=== PATIENT | male | born 1940 | race Two or more races ===

== ENCOUNTER 2019-01-04 08:39 | Inpatient (IN) | payer MEDICARE ==
[2019-01-04] VITALS (8 sets, daily range): BP systolic 104–145; BP diastolic 52–69
[~2019-01-04] VITALS: Ht 154.9 cm; Wt 68.5 kg
[2019-01-04] MEDS ORDERED: SODIUM CHLORIDE 0.9% 1000ML 1,000 ML IV STA (08:59)
[2019-01-04 09:27] LABS: BASOPHILS # (AUTO) 0.1 (0.0-0.1); BASOPHILS % 0.5 % (0.0-1.0); EOSINOPHILS # (AUTO) 0.2 (0.0-0.4); EOSINOPHILS % 1.8 % (0.0-6.0); HEMATOCRIT 51.4 % (38.2-49.6); HEMOGLOBIN 18.4 g/dL (14.0-18.0); LYMPHOCYTES # (AUTO) 2.5 (1.0-3.2); LYMPHOCYTES % 25.9 % (18.0-39.1); MEAN CORPUSCULAR HEMOGLOBIN 31.9 pg (28-32); MEAN CORPUSCULAR HGB CONC 35.8 g/dL (31-35); MEAN CORPUSCULAR VOLUME 89.2 fL (81-99); MONOCYTES # (AUTO) 0.7 (0.2-0.8); MONOCYTES % 7.2 % (4.4-11.3); NEUTROPHILS # (AUTO) 6.1 (2.1-6.9); NEUTROPHILS % 64.3 % (38.7-80.0); PLATELET COUNT 240 x10e3/uL (140-360); RED BLOOD COUNT 5.76 x10e6/uL (4.3-5.7); RED CELL DISTRIBUTION WIDTH 12.8 % (11.7-14.4)
[2019-01-04 09:46] LABS: ALANINE AMINOTRANSFERASE 32 IU/L (0-55); ALBUMIN 4.4 g/dL (3.5-5.0); ALBUMIN/GLOBULIN RATIO 1.2 (0.8-2.0); ALKALINE PHOSPHATASE 57 IU/L (40-150); ANION GAP 16.3 mmol/L (8-16); BLOOD UREA NITROGEN 13 mg/dL (7-26); BUN/CREATININE RATIO 12 (6-25); CALCIUM 10.1 mg/dL (8.4-10.2); CARBON DIOXIDE 20 mmol/L (22-29); CHLORIDE 101 mmol/L (98-107); CREATINE KINASE 83 IU/L (30-200); CREATININE, SERUM 1.13 mg/dL (0.72-1.25); EST GLOMERULAR FILTRATION RATE > 60 ML/MIN (60-); GLUCOSE 101 mg/dL (74-118); LIPASE 60 U/L (8-78); POTASSIUM 4.3 mmol/L (3.5-5.1); SODIUM 133 mmol/L (136-145)
[2019-01-04 09:50] LABS: CLARITY,URINE CLEAR (CLEAR); COLOR,URINE YELLOW (YELLOW)
--- NOTE | 2019-01-04 09:52 | Diagnostic Imaging Report ---
EXAM: CHEST SINGLE (PORTABLE), AP Portable DATE: 01/04/2019 Time stamp on exam: 9:30 AM INDICATION: Chest pain with shortness of breath COMPARISON: None FINDINGS: LINES/TUBES: None LUNGS: Mild pulmonary vascular congestion/edema. PLEURA: Small bilateral pleural effusions. HEART AND MEDIASTINUM: Cardiomegaly. BONES AND SOFT TISSUES: No acute findings. IMPRESSION: Cardiomegaly with mild pulmonary vascular congestion/edema. Signed by: Dr. Sukhi Ramirez DO on 01/04/2019 9:48 AM
[2019-01-04 09:59] LABS: BILIRUBIN,URINE NEGATIVE (NEGATIVE); KETONES,URINE NEGATIVE (NEGATIVE); LEUKOCYTE ESTERASE ,URINE NEGATIVE (NEGATIVE); NITRITE,URINE NEGATIVE (NEGATIVE); PROTEIN,URINE DIPSTICK NEGATIVE (NEGATIVE); URINE UROBILINOGEN 0.2 mg/dL (0.2 - 1)
[2019-01-04 10:01] LABS: EPITHELIAL CELLS,URINE RARE /LPF
[2019-01-04 10:14] LABS: ABG HCO3 15 mmol/L (23-28); ABG PCO2 23 mmHg (41-51); ABG PH 7.43 (7.31-7.41); ABG PO2 58 mmHg (80-105)
[2019-01-04] MEDS ORDERED: GABAPENTIN300 MG PO (10:40)
[2019-01-04] MEDS ORDERED: FOLIC ACID1 MG PO (10:40)
[2019-01-04] MEDS ORDERED: LEVOTHYROXINE50 MCG PO (10:40)
[2019-01-04] MEDS ORDERED: CLOPIDOGREL75 MG PO (10:40)
[2019-01-04] MEDS ORDERED: B-121000 MCG PO (10:47)
[2019-01-04] MEDS ORDERED: CRESTOR10 MG PO (10:47)
[2019-01-04] MEDS ORDERED: ZEBETA10 MG PO (10:47)
[2019-01-04] MEDS ORDERED: CENTRUM SILVER1 EAC2 (10:47)
[2019-01-04] MEDS ORDERED: ALBUTEROL0.63 MG/3 (10:47)
[2019-01-04] MEDS ORDERED: [UNRECOGNIZED DRUG - OTHER] (10:47)
[2019-01-04] MEDS ORDERED: ASPIR 8181 MG PO (10:47)
[2019-01-04] MEDS ORDERED: FUROSEMIDE INJ 10 MG/ML 2 ML VIAL IV ONE (11:39)
--- OUTSIDE RECORDS SUMMARY | 2019-01-04 11:51 | XMS REPORT ---
Author Author [facility] Address Unknown Phone Unavailable Care Team Providers Care Household Cook Name Role Phone Salena DING Unavailable Unavailable Problems This patient has no known problems. Allergies, Adverse Reactions, Alerts This patient has no known allergies or adverse reactions. Medications This patient has no known medications. Results Test Description Test Time Test Comments Text Results Atomic Results Result Comments CHEST SINGLE (PORTABLE) 2019-01-04 09:46:00 [facility] [address] [place] [address] Patient Name: JAYANT GUTIERREZ MR #: [id number] : 1940 Age/Sex: 78/M Req #: [id number] Adm Physician: Ordered by: LEON DING MD Report #: [id number] Location: ER Room/Bed: Procedure: [id number] DX/CHEST SINGLE (PORTABLE) Exam Date: 01/04/19 Exam Time: 929 REPORT STATUS: Signed EXAM: CHEST SINGLE (PORTABLE), AP Portable DATE: 01/04/2019 Time stamp on exam: 9:30 AM INDICATION: Chest pain with shortness of breath COMPARISON: None FINDINGS: LINES/TUBES: None LUNGS: Mild pulmonary vascular congestion/edema. PLEURA: Small bilateral pleural effusions. HEART AND MEDIASTINUM: Cardiomegaly. BONES AND SOFT TISSUES: No acute findings. IMPRESSION: Cardiomegaly with mild pulmonary vascular congestion/edema. Signed by: Dr. Nicholas Landa DO on 01/04/2019 9:48 AM Dictated By: NICHOLAS LANDA DO 7 Transcribed By: LIO on 01/04/19947 COPY TO: LEON DING MD
[2019-01-04] MEDS ORDERED: FUROSEMIDE INJ 10 MG/ML 4 ML VIAL IV ONE (12:00)
--- NOTE | 2019-01-04 12:22 | NUR ---
Pt arrived from ER via wheelchair with assistance x1. No c/o pain. Resp WNL. A&O x3. IV patent. Able to ambulate by self without assistance. Call light within reach, bed in lowest position.
--- NOTE | 2019-01-04 13:56 | Diagnostic Imaging Report ---
EXAMINATION: CT of the abdomen and pelvis with contrast. TECHNIQUE: Helical CT images of the abdomen and pelvis were performed from the lung bases to the lesser trochanters after the intravenous administration of 100 cc of Isovue 300 and the oral administration of none. Coronal and sagittal reformatted images were obtained.Dose modulation, iterative reconstruction, and/or weight based adjustment of the mA/kV was utilized to reduce the radiation dose to as low as reasonably achievable. COMPARISON: None. CLINICAL HISTORY:Elevated bilirubin, chest pain DISCUSSION: ABDOMEN/PELVIS: LOWER THORAX:Unremarkable. HEPATOBILIARY: 1.8 cm cyst in the left lobe of the liver. The common bile duct is prominent size measuring 8 mm. Possible layering gallstones versus sludge. SPLEEN: No splenomegaly. PANCREAS: No focal masses or ductal dilatation. ADRENALS: No adrenal nodules. KIDNEYS/URETERS: No hydronephrosis, stones, or solid mass lesions. PELVIC ORGANS/BLADDER: The bladder is normal. PERITONEUM/RETROPERITONEUM: No free air or fluid. LYMPH NODES: No intra-abdominal, retroperitoneal, pelvic or inguinal lymphadenopathy. VESSELS: The celiac trunk,superior and inferior mesenteric and bilateral renal arteries are patent The portal, superior mesenteric and splenic veins are patent. GI TRACT: No obstruction. Appendix normal. BONES AND SOFT TISSUE: No bony destructive lesions. No soft tissue abnormalities. IMPRESSION: Possible small gallstones/sludge. The common bile duct at the upper limits of normal for age. Signed by: Dr. Gerard Santillan M.D. on 01/04/2019 1:52 PM
[2019-01-04] MEDS ORDERED: SODIUM CHLORIDE 0.9% 50ML 50 ML ONE (14:34)
[2019-01-04] MEDS ORDERED: IOPAMIDOL 370 MG/ML 200 ML INFUS..BTL INJ ONE (14:34)
--- NOTE | 2019-01-04 14:36 | NUR ---
notified of lactic acid value.
[2019-01-04] MEDS ORDERED: CEFTRIAXONE SOD 1 GM/NS 50 ML 50 ML IV ONE (16:00)
[2019-01-04 17:49] LABS: CREATINE KINASE MB 1.9 ng/mL (0-5.0)
[2019-01-04] MEDS ORDERED: METHYLPREDNISOLONE SOD SUCC 40 MG/ML VIAL 1ML IV ONE (18:45)
--- NOTE | 2019-01-04 19:10 | NUR ---
WALKING ROUNDS PERFORMED, RECEIVED PT LAYING SEMI FOWLERS IN BED, AAOX3, RR EVEN AND NON-LABORED, O2 BY NC AT 3L. NO S/SX OF DISTRESS NOTED. LEFT PT LAYING SEMI FOWLERS IN BED, BED IN LOW LOCKED POSITION, SIDE RAILS UPX2, CALL LIGHT AND PHONE WITHIN REACH. FAMILY AT BEDSIDE. NOTIFIED ICT DEVELOPMENT MANAGER OF TRANSFER ORDERS TO ICU. PENDING BED.
[2019-01-04 19:12] LABS: AMYLASE 89 U/L (25-125); LIPASE 76 U/L (8-78)
--- NOTE | 2019-01-04 19:13 | NUR ---
REPORT CALLED TO Judy CALDERON RN FOR PATIENT TRANSFERRING TO ROOM 195 ICU.
[2019-01-04] MEDS: CEFEPIME 1GM/NS 0.9% 50 ML 50 ML IV SCH (19:16)
--- NOTE | 2019-01-04 19:34 | NUR ---
PT TRANSFERED BY HOSPITAL BED WITH CHARGE NURSE TO ROOM 195. PT STABLE, NO S/SX OF DISTRESS NOTED.
[2019-01-04] MEDS: ALBUTEROL SULF 0.083% NEB SOLN 3 ML NEB NEB SCH (20:20)
[2019-01-04 20:30] LABS: BASOPHILS % 0.4 % (0.0-1.0); EOSINOPHILS # (AUTO) 0.2 (0.0-0.4); EOSINOPHILS % 1.8 % (0.0-6.0); HEMATOCRIT 50.7 % (38.2-49.6); HEMOGLOBIN 18.2 g/dL (14.0-18.0); LYMPHOCYTES # (AUTO) 2.7 (1.0-3.2); LYMPHOCYTES % 30.4 % (18.0-39.1); MEAN CORPUSCULAR HEMOGLOBIN 32.3 pg (28-32); MEAN CORPUSCULAR HGB CONC 35.9 g/dL (31-35); MEAN CORPUSCULAR VOLUME 89.9 fL (81-99); MONOCYTES # (AUTO) 0.7 (0.2-0.8); NEUTROPHILS # (AUTO) 5.3 (2.1-6.9); NEUTROPHILS % 59.2 % (38.7-80.0); PLATELET COUNT 224 x10e3/uL (140-360); RED BLOOD COUNT 5.64 x10e6/uL (4.3-5.7)
[2019-01-04 20:42] LABS: INR 0.95; PROTHROMBIN TIME 13.2 seconds (11.9-14.5)
[2019-01-04 20:56] LABS: ANION GAP 15.1 mmol/L (8-16); CALCIUM 9.9 mg/dL (8.4-10.2); CREATININE, SERUM 1.2 mg/dL (0.72-1.25); MAGNESIUM 2.1 MG/DL (1.3-2.1); POTASSIUM 4.1 mmol/L (3.5-5.1)
[2019-01-04] MEDS ORDERED: SIMVASTATIN 40 MG TAB PO SCH (21:00)
[2019-01-04] MEDS ORDERED: GABAPENTIN 300 MG CAP PO SCH (21:00)
[2019-01-04] MEDS: FUROSEMIDE INJ 10 MG/ML 4 ML VIAL IV SCH (21:08)
[2019-01-04] MEDS: SIMVASTATIN 20 MG TAB PO SCH (21:09)
[2019-01-04] MEDS: ENOXAPARIN SOD INJ 60 MG/0.6 ML SYR SC SCH (21:11)
--- NOTE | 2019-01-04 21:54 | History and Physical ---
HISTORY OF PRESENT ILLNESS: This is a 78-year-old male, patient of mine, presented to the emergency room with complaint of severe shortness of breath for 1 day duration. The patient was in his usual state of health and suddenly started having severe shortness of breath for the last 24 hours and prior to that, the patient was also having chills and weakness. The patient was having severe shortness of breath and the patient barely walked to the bathroom and was feeling short of breath. The patient was also complaining of chest tightness, although the patient denies any chest pain. The patient had nausea while he was doing a CAT scan. PAST MEDICAL HISTORY: The patient with medical history of coronary artery disease with previous stent placement, COPD, alcoholism, and alcoholic neuropathy. MEDICATIONS: The patient was on Plavix, aspirin, and carvedilol. ALLERGIES: NO KNOWN DRUG ALLERGIES. SOCIAL HISTORY: The patient is an ex-smoker and does not drink anymore. He denies using alcohol, but he was drinking before. Denies any drug use. REVIEW OF SYSTEMS: Detailed review of systems examination was done. All the systems as per history of present illness for severe shortness of breath, chest tightness, and leg tingling and numbness. PHYSICAL EXAMINATION: GENERAL: He is an elderly male patient. He is tachypneic and short of breath. VITAL SIGNS: Temperature 96, pulse rate 90, respiratory rate 24, blood pressure 110/80. HEENT: Normocephalic. JVD present. LUNGS: Bilateral equal air entry. Rhonchi and basilar rales present. HEART: S1 and S2 regular. ABDOMEN: Soft. Bowel sounds are present. NEUROLOGIC: No focal neurological deficits. ADMITTING IMPRESSION/DIAGNOSES: Acute dyspnea, etiology coalm-te-[id number] decompensated diastolic congestive heart failure, present on admission. Chronic obstructive pulmonary disease with exacerbation and severe hypoxemia, suspecting pulmonary embolism. Lactic acidosis, suspect sepsis versus hypoxemia secondary to lactic acidosis from hypoxemia. Carotid disease and gastritis. PLAN: The patient will be admitted with above diagnosis. We will obtain CT scan of the chest, PE protocol, and obtain Cardiology and Pulmonary consultation. The patient had echocardiogram done, which showed diastolic dysfunction. We will give the patient nebulizer treatment. Modesto Crawford MD [facility]/MODL /[id number]
[2019-01-05] VITALS (26 sets, daily range): BP systolic 87–125; BP diastolic 48–94
--- NOTE | 2019-01-05 00:08 | NUR ---
Trending blood pressures. B/P 99/55, MAP 70, HR 74. Called to Dr Huerta the covering physician for Dr Narvaez. Have been instructed by Dr Narvaez to call his covering physician regarding trending blood pressures in order to obtain a PICC line early as pt is anticipated to decompensate. Dr Huerta stated "I am not giving you an order for a PICC", "call me back with a MAP less than 65", "Im not worried about the systolic", attempts to explain the rationale for early warning is the PICC team has a 4 hour window to respond was met with a "I know about the patient" response.
--- NOTE | 2019-01-05 00:19 | Consultation ---
DATE OF CONSULTATION: 01/04/2019 Cardiology Consultation REASON FOR CONSULTATION: Shortness of breath. HISTORY OF PRESENT ILLNESS: This is a 78-year-old male with history of coronary artery disease, status post myocardial infarction and PCI in 2012, asthma, and history of tobacco and alcohol use, who presents with complaints of shortness of breath. The patient states that he has been short of breath for the last week with worsening in the last 2 to 3 days, most significantly the day prior to admission. The morning of admission, he woke up at 06:30 with shortness of breath and chest heaviness, which he described as 5/10 in severity. There was no nausea, diaphoresis, or radiation. The patient endorses dyspnea on exertion walking to the bathroom as well as symptoms of orthopnea and PND for the last 2 days. Of note, the patient reports having chills the day prior to admission and nausea during his CAT scan. REVIEW OF SYSTEMS: Negative except as per HPI. PAST MEDICAL HISTORY: 1. Coronary artery disease, status post myocardial infarction and stent in 2012. 2. Asthma/COPD. 3. Alcohol use. PAST SURGICAL HISTORY: 1. Hernia surgery. 2. Cataract surgery. SOCIAL HISTORY: Prior tobacco use. He has previously smoked 1 pack a day for 50 years. Occasional alcohol. No illicit drugs. FAMILY HISTORY: Denies family history of heart disease. ALLERGIES: PLEASE SEE EMR. MEDICATIONS: Please see medication list. PHYSICAL EXAMINATION: VITAL SIGNS: Temperature 97.3 degrees, pulse 63, respiratory rate 18, blood pressure 111/60, oxygen 95% on 3 L nasal cannula. GENERAL: Well-developed, well-nourished man, in no acute distress. HEENT: Normocephalic, atraumatic. Pupils equal. No scleral icterus. NECK: Supple. No thyroid or cervical lymphadenopathy. No carotid bruits. LUNGS: Clear to auscultation bilaterally. No wheezes or crackles. CARDIOVASCULAR: Normal rate, regular rhythm. No murmur. Normal S1 and S2. ABDOMEN: Soft, nontender. EXTREMITIES: No edema. NEURO: Nonfocal exam. LABORATORY DATA: WBC 8.95, hemoglobin 18.2, hematocrit 50.7, platelets 224. Sodium 132, potassium 4.1, chloride 100, CO2 of 21, BUN 15, creatinine 1.2. BNP is 252. Lactic acid 9. IMAGING STUDIES: 1. Chest x-ray, cardiomegaly with mild pulmonary vascular congestion/edema. 2. CT abdomen and pelvis, positive small gallstone/sludge. Common bile duct at the upper limits of normal for age. 3. EKG, sinus rhythm with right bundle-branch block, inferior and anterior infarcts, old. IMPRESSION: 1. Acute hypoxic respiratory failure. 2. Jsijz-np-dehkuiz diastolic heart failure. 3. Chronic obstructive pulmonary disease exacerbation. 4. Lactic acidosis. 5. Coronary artery disease, status post prior myocardial infarction. RECOMMENDATION: Trend cardiac markers to rule out myocardial infarction. Echocardiogram was performed. LVEF is preserved; however, the patient does have regional wall motion abnormalities noted on echo, suspect from prior myocardial infarction. He will need ischemic evaluation once dyspnea has improved. Continue gentle diuretics. Agree with therapeutic anticoagulation while CT chest to rule out PE is pending. Thank you for this consult. We will continue to follow. Sintia Amaya MD ABS/MODL /[id number] MTDD
--- NOTE | 2019-01-05 02:19 | Consultation ---
DATE OF CONSULTATION: HISTORY OF PRESENT ILLNESS: This is a 78-year-old gentleman, who was seen and examined at the request of Dr. Modesto Crawford. The patient was seen and he has been moved to ICU. The patient is a 78-year-old gentleman with known history of coronary artery disease. He is originally from [place] and he has history of smoking in the past as well. The patient has been having increasing shortness of breath over the last few days off and on, and this morning, he told his and his daughter to bring him to the hospital. The patient has had some chest tightness and pain, had discomfort, and he was found to be in congestive heart failure and he has been admitted to the hospital. I was asked to see him since the patient's ABG showed that he seems to have some acidosis and some hypoxemia. The patient had some metabolic acidosis as well with a serum bicarbonate of 15, which prompted consultation with me. The patient says that he has not felt well in the last few days. He is originally from [place], but has been in [facility] for number of years. He is not diabetic. He has had a previous history of previous myocardial infarction requiring a stent placement. Otherwise, he was a smoker for number of years in the past, but has not smoked lately. He does not know if he has underlying COPD at this time or not. The patient denies history of diabetes. MEDICATIONS: He has been started on cefepime, furosemide, simvastatin, enoxaparin, levothyroxine, gabapentin, Plavix, folic acid, bisoprolol, aspirin, and albuterol. He received a dose of Solu-Medrol earlier as well. ALLERGIES: THE PATIENT HAS NO KNOWN DRUG ALLERGIES. REVIEW OF SYSTEMS: NEUROLOGIC: He denies passing out or seizures. CARDIAC: He has had chest pain and pressure on the chest. PULMONARY: He has had shortness of breath. No hemoptysis. No significant production of sputum. ABDOMEN: He denies abdominal pain. No nausea, vomiting, or bleeding per rectum. : No dysuria or hematuria. SKIN: No rash. SOCIAL HISTORY: The patient is a nonsmoker. He has a . Originally, he is retired. He use to work in [employer]els. He says he is pretty much retired now. FAMILY HISTORY: Noncontributory. PHYSICAL EXAMINATION: VITAL SIGNS: He is afebrile, pulse 63, respiratory rate 18, blood pressure 111/60, and O2 saturation 95% on 3L. HEENT: Atraumatic, normocephalic. NECK: Supple. CHEST: Diminished breath sounds. Minimal wheezing. The patient has few crackles at lung base. HEART: Heart sounds are normal. ABDOMEN: Soft. EXTREMITIES: Showed no cyanosis, clubbing, or edema. NEUROLOGIC: He was alert, awake, but appeared somewhat anxious due to the breathing issues. LABORATORY DATA: ABG; pH 7.43, pCO2 23, pO2 58 with bicarbonate of 15. The patient's hematology, white count 9.54, hemoglobin 18.4, and platelet count is 240. Chemistries showed electrolytes are within normal limits with BUN of 13 and creatinine 0.13. Lactic acid was read as 32.3 and I am not sure that the etiology of such high lactic acid. I have asked for a repeat lactic acid, we have done stat. The patient's BNP was 252. Bilirubin 2.4. Albumin 4.4. Bicarbonate from this morning 20, of course I have not seen a repeat labs on him. So far, cardiac enzymes, his total CK was 223, MB was 1.9, and troponin was 0.008. site damage prevention technician CK-MB was 1.6 and troponin was 0.013. IMAGING DATA: The patient's abdominal and pelvic CT was unremarkable. There was no signs of any infarction or abdominal problem. The patient has a possible gallstones or sludge and common bile duct was upper limit of normal. Chest x-ray showed suggestion of cardiomegaly with small pleural effusions and pulmonary vascular congestion. At this time, my suspicion is that the patient has underlying CHF with some COPD and I cannot rule out possibility of infection or bronchitis and some COPD exacerbation. The patient has had an echocardiogram, which as a preliminary showed no evidence of pericardial effusion. The patient had mild AI or TR. There is EF of about 50% to 55%. The patient's echo has not been read by Cardiology so far. The EKG showed sinus rhythm with superior axis deviation, inferoposterior myocardial infarction. The patient has nonspecific ST-T wave changes. IMPRESSION AND PLAN: At this time, the patient has been admitted to ICU for new onset pulmonary edema, underlying chronic obstructive pulmonary disease, rule out sepsis, severe metabolic lactic acidosis. The patient is not on any metformin. There is no history of diabetes mellitus and the etiology of lactic acidosis is unclear. There is no signs of infarction of the bowel and I guess if he was hypoxic for a while, it could have triggered the lactic acidosis, but I am hoping that repeat labs showed the lactic acidosis is improving and that his overall condition seems to be better. The patient remains at risk for respiratory failure, hypoxia, shock, and . Overall condition is guarded. I have discussed the plan of care with family members and we will follow him closely in the ICU. MD KENNETH Brian/MODL /[id number]
[2019-01-05] MEDS: ALBUTEROL SULF 0.083% NEB SOLN 3 ML NEB NEB SCH ×7 (03:00→23:00)
[2019-01-05 04:59] LABS: HEMATOCRIT 50.1 % (38.2-49.6); LYMPHOCYTES # (AUTO) 0.8 (1.0-3.2); LYMPHOCYTES % 11.2 % (18.0-39.1); MEAN CORPUSCULAR HEMOGLOBIN 32.3 pg (28-32); MEAN CORPUSCULAR HGB CONC 35.9 g/dL (31-35); MEAN CORPUSCULAR VOLUME 89.9 fL (81-99); MONOCYTES # (AUTO) 0.1 (0.2-0.8); NEUTROPHILS # (AUTO) 6.4 (2.1-6.9); NEUTROPHILS % 87.5 % (38.7-80.0); PLATELET COUNT 234 x10e3/uL (140-360); RED BLOOD COUNT 5.57 x10e6/uL (4.3-5.7); RED CELL DISTRIBUTION WIDTH 12.9 % (11.7-14.4)
[2019-01-05 05:28] LABS: ALBUMIN 4.3 g/dL (3.5-5.0); ALBUMIN/GLOBULIN RATIO 1.3 (0.8-2.0); ANION GAP 17.3 mmol/L (8-16); CALCIUM 9.7 mg/dL (8.4-10.2); CREATININE, SERUM 1.56 mg/dL (0.72-1.25); POTASSIUM 4.3 mmol/L (3.5-5.1)
[2019-01-05 05:29] LABS: CREATINE KINASE MB 1.8 ng/mL (0-5.0)
[2019-01-05 05:58] LABS: CHOL/HDL RATIO 1.5 (3.9-4.7)
[2019-01-05] MEDS: CEFEPIME 1GM/NS 0.9% 50 ML 50 ML IV SCH ×2 (06:33→18:11)
[2019-01-05] MEDS: LEVOTHYROXINE SODIUM 50 MCG TAB PO SCH (06:33)
[2019-01-05] MEDS: FUROSEMIDE INJ 10 MG/ML 4 ML VIAL IV SCH (08:49)
[2019-01-05] MEDS: FOLIC ACID 1 MG TAB PO SCH (08:50)
[2019-01-05] MEDS: ENOXAPARIN SOD INJ 60 MG/0.6 ML SYR SC SCH ×2 (08:50→21:05)
[2019-01-05] MEDS: CLOPIDOGREL BISULFATE 75 MG TAB PO SCH (08:50)
[2019-01-05] MEDS: ASPIRIN 81 MG CHEW TAB PO SCH (08:50)
[2019-01-05] MEDS: BISOPROLOL FUMARATE 10 MG TAB PO SCH (08:52)
--- NOTE | 2019-01-05 08:54 | Diagnostic Imaging Report ---
EXAM: US ABDOMEN COMPLETE INDICATION: Gallstone. COMPARISON: CT Abdomen/Pelvis 01/04/2019. TECHNIQUE: Transverse and longitudinal martinez scale and color doppler sonographic images of the abdomen were obtained. FINDINGS: LIVER 10.3 cm in the right midclavicular line. Increased echogenicity of the liver with normal contour. Simple appearing anechoic cyst within the left hepatic lobe, measuring up to 1.9 cm. SPLEEN 6.8 cm in maximum diameter. Normal echogenicity, no masses. GALLBLADDER Mild gallbladder sludge. No gallbladder wall thickening, distension, stone, or pericholecystic fluid. Negative reported sonographic Palmer's sign. BILE DUCTS No intra nor extra-hepatic biliary dilation. Common bile duct measures 0.5 cm PANCREAS: Visualized portions are normal. RIGHT KIDNEY: 9.4 cm Echogenicity: Normal Collecting System: No hydronephrosis Stones: None Cyst/Mass: None LEFT KIDNEY: 9.3 cm Echogenicity: Normal Collecting System: No hydronephrosis Stones: None Cyst/Mass: None VESSELS: Aorta: Visualized portions are within normal size limits Inferior Vena Cava: Visualized portions are normal Main Portal Vein: 0.8 cm, normal size with hepatopetal flow. FREE FLUID: None IMPRESSION: Mild gallbladder sludge without sonographic evidence of cholecystitis. Hepatic steatosis. Signed by: Dr. Amberly Bess MD on 01/05/2019 8:51 AM
[2019-01-05] MEDS ORDERED: ALBUMIN 25% 25GM 100ML 0.25 GM/ML BTL IV SCH (09:45)
[2019-01-05] MEDS ORDERED: ALBUMIN 25% 25GM 100ML 200 ML IV ONE (10:00)
[2019-01-05] MEDS ORDERED: THIAMINE HCL INJ 100 MG/ML 2ML VIAL IV ONE (10:15)
--- NOTE | 2019-01-05 10:16 | Consultation ---
DATE OF CONSULTATION: HISTORY OF PRESENT ILLNESS: A 78-year-old gentleman with underlying history of coronary artery disease status post PCI stenting, history of [place] six years ago, history of COPD, asthma, history of tobacco addiction, and history of alcoholism. He continues to drink beer off and on, last drank home a few days ago. He presented with worsening shortness of breath, chest pressure, found to have significant COPD exacerbation. Found to have significantly elevated lactic acid level and acute kidney injury. The patient denies any history suggestive of any kidney dysfunction. It does sound like he has prostate enlargement. He feels better today. His workup included CT scan of the abdomen and pelvis with contrast as well as an abdominal ultrasound. I am unable to pull up the chest x-ray film, but the report shows cardiomegaly and pulmonary edema. Laboratory test shows a hemoglobin of 18 with a hematocrit of 50. His chemistry shows serum sodium 133, potassium 4.3, bicarbonate 20 with anion gap 17, creatinine 1.56. He had a CK of 400. Last BNP level was 253. His total bilirubin was found to be 2.2. His troponin I 0.005. Last lactic acid 10.9. Urinalysis completely benign. ALLERGIES: NO APPARENT DRUG ALLERGIES. CURRENT MEDICATIONS: The patient is on cefepime 1 g IV q.12 h., albuterol Atrovent nebulizer, aspirin 81 mg daily, Plavix 75 mg daily, Lovenox 60 subcu q.12 h., folic acid 1 mg daily, currently on Lasix 40 mg IV q.12 h., gabapentin 300 mg p.o. at bedtime, which I am going to stop. Levothyroxine 50 mcg daily. Received methylprednisolone 1 time does and he is on Zocor 20 mg p.o. at bedtime. SOCIAL HISTORY: As above. FAMILY HISTORY: Significant for hypertension. PHYSICAL EXAMINATION: VITAL SIGNS: The patient's blood pressure is 125/62, pulse rate 75, afebrile, oxygen saturation 96% on 3 L nasal cannula. HEAD AND NECK: Arcus senilis noted. Oral mucosa dry. Neck veins questionable JVD. LUNGS: Bibasilar rales. Occasional end-expiratory rhonchi. HEART: No significant rubs or gallop. ABDOMEN: Otherwise soft, nontender, albeit distended. Flanks full. EXTREMITIES: Lower extremity examination shows no edema. IMPRESSION AND PLAN: 1. Lactic acidosis most likely type A due to combination of tissue hypoperfusion as well as decreased metabolism of lactic acid due to hepatic steatosis probably early cirrhosis plus ongoing alcohol intake. 2. Hypoxia, most likely combination of chronic obstructive pulmonary disease exacerbation, most likely angina and congestive heart failure. Has significant hemoconcentration, may require phlebotomy. His hematocrit is 50, so that places him high risk for vascular insult. Consider phlebotomy. 3. Acute kidney injury, multifactorial, slightly worse today secondary to diuretics, but at this point in time, I will encourage to continue with diuretics. Serum sodium relatively low, multifactorial, again liver recent, alcohol use, questionable nutritional intake. Plan on continuing with diuretics, bronchodilators oxygen, at some point in time we will need a stress test and possible cardiac cath. Kidneys 9.4 and 9.3 cm with normal echogenicity. Please see orders. MD BLADIMIR Pope/LANIE /[id number]
[2019-01-05] MEDS: BUMETANIDE INJ 0.25MG/ML 4ML VIAL IV SCH ×2 (12:04→17:02)
[2019-01-05] MEDS: SODIUM BICARBONATE 650 MG TAB PO SCH ×2 (12:04→21:05)
--- NOTE | 2019-01-05 14:02 | Progress Note ---
DATE: 01/05/2019 Cardiology Progress Note SUBJECTIVE: The patient denies chest pain. He reports his shortness of breath is better. OBJECTIVE: VITAL SIGNS: Temperature 98.5 degrees, pulse 88, respiratory rate 18, blood pressure 102/90, oxygen saturation 96% on 3 L nasal cannula. GENERAL: Awake, alert, in no acute distress. LUNGS: Clear to auscultation bilaterally. No wheezes or crackles. CARDIOVASCULAR: Normal rate, regular rhythm. No murmur. Normal S1, S2. ABDOMEN: Soft and nontender. EXTREMITIES: No edema. CARDIAC MEDICATIONS: 1. Enoxaparin 60 mg subcu q.12 hours. 2. Plavix 75 mg p.o. daily. 3. Aspirin 81 mg p.o. daily. 4. Levothyroxine 50 mcg p.o. daily. 5. Simvastatin 20 mg p.o. daily. 6. Metoprolol 5 mg p.o. daily. 7. Bumex 1 mg IV q.6 hours. LABORATORY DATA: WBC 7.32, hemoglobin 18, hematocrit 50.1, platelets 234. Sodium 132, potassium 4.3, chloride 100, CO2 20, BUN 20, creatinine 1.56. Troponin 0.005. LDL 19. Ultrasound of abdomen, hepatic steatosis, small gallbladder sludge without sonographic evidence of cholecystitis. Telemetry, normal sinus rhythm. IMPRESSION: 1. Acute hypoxic respiratory failure. 2. Tawfk-kr-angiebo diastolic heart failure. 3. Chronic obstructive pulmonary disease exacerbation. 4. Lactic acidosis, resolved. 5. Coronary artery, status post prior myocardial infarction. RECOMMENDATIONS: The patient ruled out for myocardial infarction with serial cardiac biomarkers. Echocardiogram with preserved LVEF. However, the patient does have regional wall motion abnormalities noted on echo, possibly from prior myocardial infarction. He will need ischemic evaluation once his dyspnea is improved. The patient had mild ZONIA this morning. Diuretics were adjusted by Nephrology. We will monitor closely. CT chest is pending to rule out PE. Continue therapeutic anticoagulation. Antibiotics per primary service. Thank you for this consult. We will continue to follow. Sintia Amaya MD ABS/MODL /[id number]
--- NOTE | 2019-01-05 15:31 | NUR ---
PATIENT AMBULATED WITH PHYSICAL THERAPY. NO SOB. SITTING UP IN CHAIR AND DENIES SOB. VSS
[2019-01-05] MEDS ORDERED: IOPAMIDOL 370 MG/ML 200 ML INFUS..BTL INJ ONE (15:56)
[2019-01-05] MEDS ORDERED: SODIUM CHLORIDE 0.9% 50ML 0 ML ONE (15:56)
[2019-01-05] MEDS ORDERED: SODIUM CHLORIDE 0.9% 100 ML 100 ML ONE (16:03)
--- NOTE | 2019-01-05 16:22 | NUR ---
PATIENT WITH ONLY 1 VOID TODAY OF 300 ML. ORDER TO BLADDER SCAN. NO URINE RETENTION PER SCAN. NOTIFIED DR ALMENDAREZ AND NEW ORDERS RECEIVED.
[2019-01-05] MEDS ORDERED: ALBUMIN 5% 0.05 GM/ML BTL IV ONE (16:30)
[2019-01-05] MEDS ORDERED: ALBUMIN 5% 250ML 500 ML IV ONE (16:30)
--- NOTE | 2019-01-05 16:43 | Progress Note ---
DATE: SUBJECTIVE: The patient was seen and examined. Chart was reviewed. The patient has been doing better. He denies chest pain, nausea, vomiting, or other complaints. His breathing has significantly improved since yesterday. The patient was also anxious yesterday and he seems to be less anxious today. The patient denies other complaints. MEDICATIONS: Include cefepime, albuterol, aspirin, bisoprolol, Plavix, folic acid, levothyroxine, enoxaparin, Bumex, and sodium bicarbonate. The patient has been otherwise in no distress. He received a dose of Solu-Medrol yesterday and today. He is usually not wheezing at all and he denies any new complaints. PHYSICAL EXAMINATION: VITAL SIGNS: The patient has been afebrile, pulse 88, respiratory rate 18, blood pressure 102/90 and O2 saturation 96%. HEENT: Atraumatic, normocephalic. NECK: Supple. CHEST: Reasonably clear. HEART: Heart sounds are normal. ABDOMEN: Soft. EXTREMITIES: No cyanosis, clubbing, or edema. NEUROLOGIC: He is alert, awake, calm, and cooperative. LABORATORY DATA: BUN of 20, creatinine 1.56, white count 7.3, hemoglobin 18, hematocrit 50, platelet count is 234. PT/INR 0.95. The patient has received thiamine and he has received IV Bumex and Lovenox. The patient denies chest pain, nausea, vomiting, or other complaints. The patient's lactic acid has improved. At this time, it is not clear as to what cause the lactic acidosis, but could certainly be hypoxemia. His initial chest x-ray was suggestive of congestive heart failure. Anemia with some underlying COPD. IMPRESSION: 1. The patient with underlying congestive heart failure secondary to diastolic dysfunction. 2. History of coronary artery disease. 3. The patient with underlying gallstones versus sludge. 4. Chest x-ray was suggestive of mild congestive heart failure. 5. The patient's overall condition continues to improve. We will continue current care. The patient has been seen by Dr. Magana for metabolic acidosis evaluation and overall prognosis remains guarded. The patient does have slight high hematocrit, the etiology of which is unclear. Chemistries does show that his CK was slightly elevated though the MB and troponins were normal. Bilirubin is just slightly high at 2.2 and vitamin B1 level is pending. Lactic acid is at 27.1 mg/dL which is improved from before. So far, the patient's overall condition continues to improve and we will follow the patient closely. MD KENNETH Brian/LANIE /[id number]
[2019-01-05] MEDS: SODIUM CHLORIDE 0.9% 1000ML 1,000 ML IV SCH (16:48)
--- NOTE | 2019-01-05 16:56 | Diagnostic Imaging Report ---
EXAM: CT Chest with contrast INDICATION: Pulmonary congestion, edema. COMPARISON: CT abdomen/pelvis 01/04/2019. TECHNIQUE: Chest was scanned utilizing a multidetector helical scanner from the lung apex through the level of the adrenal glands without administration of IV contrast. Coronal and sagittal reformations were obtained. Routine protocol was performed. IV CONTRAST: 100 mL of Isovue-370 RADIATION DOSE: Total DLP: 566.4 mGy*cm Dose modulation, iterative reconstruction, and/or weight based adjustment of the mA/kV was utilized to reduce the radiation dose to as low as reasonably achievable. COMPLICATIONS: None FINDINGS: LINES/ TUBES: None. LUNGS AND AIRWAYS: The central airways are patent. There are moderate upper lobe predominant centrilobular emphysematous changes of the lungs. Mild biapical pleural-parenchymal opacity, consistent with prior granulomatous disease. Punctate 1 mm calcified granuloma in the left upper lobe on series 3, image 34. There is a 4 mm dependent groundglass nodular opacity in the right upper lobe on series 3, image 66, likely infectious or inflammatory. No evidence of pulmonary edema or pneumonia. PLEURA: The pleural spaces are clear. HEART AND MEDIASTINUM: The thyroid gland is unremarkable. No mediastinal, hilar or axillary lymphadenopathy. Mild cardiomegaly. Moderate to extensive atherosclerotic calcifications within the thoracic aorta and coronary arteries. UPPER ABDOMEN: Left hepatic lobe cyst. Mildly prominent common bile duct, measuring up to 8 mm. Please refer to the CT abdomen/pelvis from 01/04/2019 for further details of upper abdominal findings. BONES: No acute osseous abnormality. No suspicious lytic or blastic lesions. SOFT TISSUES: Small left-sided fat-containing Bochdalek hernia. IMPRESSION: No evidence of pulmonary edema or pneumonia. Moderate upper lobe predominant emphysematous changes of the lungs. Signed by: Dr. Amberly Bess MD on 01/05/2019 4:53 PM
[2019-01-05] MEDS: SIMVASTATIN 20 MG TAB PO SCH (21:05)
[2019-01-06] VITALS (25 sets, daily range): BP systolic 74–144; BP diastolic 44–86
[2019-01-06] MEDS: BUMETANIDE INJ 0.25MG/ML 4ML VIAL IV SCH ×3 (01:00→21:27)
[2019-01-06] MEDS: ALBUTEROL SULF 0.083% NEB SOLN 3 ML NEB NEB SCH ×6 (03:00→23:50)
[2019-01-06 05:33] LABS: BASOPHILS % 0.4 % (0.0-1.0); EOSINOPHILS % 0.3 % (0.0-6.0); HEMATOCRIT 41.6 % (38.2-49.6); HEMOGLOBIN 14.2 g/dL (14.0-18.0); LYMPHOCYTES # (AUTO) 2.9 (1.0-3.2); LYMPHOCYTES % 25.6 % (18.0-39.1); MEAN CORPUSCULAR HEMOGLOBIN 31.8 pg (28-32); MEAN CORPUSCULAR HGB CONC 34.1 g/dL (31-35); MEAN CORPUSCULAR VOLUME 93.3 fL (81-99); MONOCYTES # (AUTO) 1.4 (0.2-0.8); MONOCYTES % 12.3 % (4.4-11.3); NEUTROPHILS # (AUTO) 6.8 (2.1-6.9); NEUTROPHILS % 61.2 % (38.7-80.0); PLATELET COUNT 183 x10e3/uL (140-360); RED BLOOD COUNT 4.46 x10e6/uL (4.3-5.7); RED CELL DISTRIBUTION WIDTH 13.2 % (11.7-14.4)
[2019-01-06 05:52] LABS: ALBUMIN/GLOBULIN RATIO 2.1 (0.8-2.0); CALCIUM 9.2 mg/dL (8.4-10.2); CREATININE, SERUM 1.88 mg/dL (0.72-1.25)
--- NOTE | 2019-01-06 06:01 | Diagnostic Imaging Report ---
EXAM: CHEST SINGLE (PORTABLE), AP Portable DATE: 01/06/2019 7:00 AM Time stamp on exam: 9:30 AM INDICATION: CHF. Pulmonary edema. COMPARISON: 01/04/2019. FINDINGS: LINES/TUBES: None LUNGS: Mild pulmonary vascular congestion/edema. PLEURA: Small bilateral pleural effusions. HEART AND MEDIASTINUM: Cardiomegaly. BONES AND SOFT TISSUES: No acute findings. IMPRESSION: No significant interval change in bilateral pulmonary venous congestion. Signed by: Dr. Sal Staples M.D. on 01/06/2019 5:57 AM
[2019-01-06] MEDS: LEVOTHYROXINE SODIUM 50 MCG TAB PO SCH (06:05)
[2019-01-06] MEDS: CEFEPIME 1GM/NS 0.9% 50 ML 50 ML IV SCH ×2 (06:06→18:18)
--- NOTE | 2019-01-06 08:00 | NUR ---
AMBULATED PATIENT IN HALLWAY. SOME SOB NOTED. O2 SATS AT 90% ON 4L NC WHILE WALKING
[2019-01-06] MEDS: ASPIRIN 81 MG CHEW TAB PO SCH (08:36)
[2019-01-06] MEDS: SODIUM BICARBONATE 650 MG TAB PO SCH ×3 (08:37→21:27)
[2019-01-06] MEDS: FOLIC ACID 1 MG TAB PO SCH (08:37)
[2019-01-06] MEDS: CLOPIDOGREL BISULFATE 75 MG TAB PO SCH (08:37)
[2019-01-06] MEDS: BISOPROLOL FUMARATE 10 MG TAB PO SCH (08:37)
[2019-01-06] MEDS: ENOXAPARIN SOD INJ 60 MG/0.6 ML SYR SC SCH ×2 (08:37→21:27)
[2019-01-06] MEDS: SODIUM CHLORIDE 0.9% 1000ML 1,000 ML IV SCH (10:09)
--- NOTE | 2019-01-06 13:42 | Progress Note ---
DATE: SUBJECTIVE: The patient is a 78-year-old gentleman, who was admitted with increasing shortness of breath. The patient has been feeling well. MEDICATIONS: Include sodium bicarbonate, enoxaparin, folic acid, Plavix, aspirin, albuterol, cefepime, levothyroxine, Bumex, simvastatin, and bisoprolol. PHYSICAL EXAMINATION: VITAL SIGNS: The patient has been afebrile, pulse 70, respiratory rate 17, blood pressure 112/50, pulse oximetry 96% on 3 L. HEENT: Atraumatic, normocephalic. NECK: Supple. CHEST: Diminished breath sounds, otherwise are clear. HEART: Heart sounds are normal. ABDOMEN: Soft. EXTREMITIES: Showed no cyanosis, clubbing, or edema. IMAGING: The patient had a chest x-ray, which shows no significant change with bilateral pulmonary vascular congestion. The patient's CT scan of the chest showed no evidence of pulmonary edema or pneumonia. The patient has emphysematous changes. There is a 4 mm ground glass nodular opacity in the right upper lobe, which may be infectious or inflammatory and may require a followup in the future. Clinically from the pulmonary standpoint, the patient seems to be doing okay. LABORATORY DATA: White count is 11.12, hemoglobin 14.2, hematocrit 41.6, platelet count is 183. Chemistries show creatinine of 1.88, BUN of 25, anion gap is slightly high at 18, bilirubin is 1.8, alkaline phosphatase 36. The patient's albumin is 5.0. ASSESSMENT AND PLAN: Clinically, the patient seems to be doing alright. I have no new recommendations. The patient has underlying congestive heart failure and underling diastolic dysfunction. There may be a component of chronic obstructive pulmonary disease as a problem and hypoxia. The patient remains on antibiotics at this time and his pulmonary status remains stable. The patient's creatinine has bumped up and I think at this time, we may have to watch his volume status and watch whether he needs that much diuretics. Clinically, the patient seems to be improving. The patient has been on cefepime, which is reasonable, but I think I do not see any evidence of significant pneumonia or infection and I will let the Nephrology Service decide on the fluids and diuretics. Overall, condition is guarded. The patient has been overall doing well otherwise. We will continue to follow him on as needed basis. I thank Dr. Salvador for asking me to see Sienna Carlene Crawford. MD KENNETH Brian/LANIE /[id number]
--- NOTE | 2019-01-06 15:14 | NUR ---
Nutrition Screen Note RD Recommendation for Physician: -Continue current diet as ordered -Handouts on heart healthy diet were given. Plan of Care: RD following, monitoring for tolerance and adequacy Nutrition reason for involvement: Diagnosis Primary Diagnose(s): congestive heart failure secondary to diastolic dysfunction PMH: CAD, asthma, COPD Ht: 61in Wt: 151.38lb BMI: 28.6kg/m2 IBW: 112lb RD Assessment: (01/06) Chart reviewed. Labs and meds reviewed. 78yo M, who was admitted for SOB. CXR showed mild pulmonary vascular congestion/edema, small bilateral pleural effusions and cardiomegaly. Visited pt in the room. Pt reported improvement in his appetite. No complains of nausea or vomiting. LBM 01/06. Pt denied any chewing or swallowing difficulty. Weight has been stable. Will continue to monitor and follow. Current Diet: cardiac diet/ vegetarian Malnutrition Evaluation (01/06/2019) The patient does not meet criteria for a specified degree of malnutrition at this time. Will re-evaluate at follow-up as appropriate. Diet Education Needs Assessment: Diet education indicated, pt was not interested at this time. Handouts were left on bedside. Nutrition Care Level: low Signed: Zoie Parry, MS, RD, LD
[2019-01-06] MEDS: BUDESONIDE/FORMOTEROL 160/4.5MCG INHALER INH SCH (20:00)
--- NOTE | 2019-01-06 21:24 | Progress Note ---
DATE: Cardiology Progress Note SUBJECTIVE: No major events overnight. His breathing is better. OBJECTIVE: VITAL SIGNS: Temperature afebrile, pulse 79, respiratory rate 20, blood pressure 144/86, saturating 96% on 3 L nasal cannula. GENERAL: Awake and alert. No acute distress. CARDIOVASCULAR: Regular rate and rhythm. No murmurs, rubs, or gallops. LUNGS: Clear to auscultation bilaterally. ABDOMEN: Soft, nontender, nondistended. NEURO AND PSYCH: Alert and oriented to person, place, and time. Normal affect. INPATIENT MEDICATIONS: Reviewed. LABORATORY DATA: Reviewed. TELEMETRY DATA: Reviewed. ASSESSMENT: 1. Hqlxk-fa-nzhjwfa diastolic heart failure exacerbation. 2. Acute hypoxemic respiratory failure. 3. Chronic obstructive pulmonary disease exacerbation. 4. Coronary artery disease status post prior myocardial infarction and stenting. RECOMMENDATIONS: The patient has been ruled out for acute MT with serial cardiac biomarkers. Echocardiogram shows preserved LV EF with some wall motion abnormalities. Continue diuresing as renal function tolerates. CT PE protocol has been performed that showed no evidence of pulmonary embolism. There is no significant pulmonary edema present. Since there is no evidence of PE or acute coronary syndrome, we will discontinue full-dose anticoagulation and only continue prophylactic dose Lovenox. Once the patient's shortness of breath improves and he is out of the ICU, he will need ischemic evaluation. If renal function remains poor, I recommend a stress test instead of proceeding directly to catheterization. Thank you for this consult. We will continue to follow. MD MATTHIAS Egan/MODL /[id number]
[2019-01-06] MEDS: SIMVASTATIN 20 MG TAB PO SCH (21:27)
[2019-01-07] VITALS (16 sets, daily range): BP systolic 111–127; BP diastolic 60–79
[2019-01-07] MEDS: ALBUTEROL SULF 0.083% NEB SOLN 3 ML NEB NEB SCH ×6 (03:00→23:00)
[2019-01-07] MEDS: SODIUM CHLORIDE 0.9% 1000ML 1,000 ML IV SCH (03:26)
[2019-01-07 05:16] LABS: BASOPHILS # (AUTO) 0.1 (0.0-0.1); BASOPHILS % 0.6 % (0.0-1.0); EOSINOPHILS # (AUTO) 0.4 (0.0-0.4); EOSINOPHILS % 4.6 % (0.0-6.0); HEMATOCRIT 44.7 % (38.2-49.6); HEMOGLOBIN 15.1 g/dL (14.0-18.0); LYMPHOCYTES # (AUTO) 2.8 (1.0-3.2); LYMPHOCYTES % 31.5 % (18.0-39.1); MEAN CORPUSCULAR HEMOGLOBIN 31.7 pg (28-32); MEAN CORPUSCULAR HGB CONC 33.8 g/dL (31-35); MEAN CORPUSCULAR VOLUME 93.9 fL (81-99); MONOCYTES % 10.6 % (4.4-11.3); NEUTROPHILS # (AUTO) 4.7 (2.1-6.9); NEUTROPHILS % 52.5 % (38.7-80.0); PLATELET COUNT 184 x10e3/uL (140-360); RED BLOOD COUNT 4.76 x10e6/uL (4.3-5.7)
[2019-01-07 05:26] LABS: ALBUMIN 4.7 g/dL (3.5-5.0); ALBUMIN/GLOBULIN RATIO 1.7 (0.8-2.0); ANION GAP 17.6 mmol/L (8-16); CALCIUM 9.2 mg/dL (8.4-10.2); CREATININE, SERUM 1.21 mg/dL (0.72-1.25); POTASSIUM 3.6 mmol/L (3.5-5.1)
[2019-01-07] MEDS: LEVOTHYROXINE SODIUM 50 MCG TAB PO SCH (06:29)
[2019-01-07] MEDS: CEFEPIME 1GM/NS 0.9% 50 ML 50 ML IV SCH ×2 (06:29→17:57)
--- NOTE | 2019-01-07 08:12 | NUR ---
AMBULATED PATIENT IN HALLWAY. O2 SATS 89-90% WHILE WALKING ON 3L NC.
[2019-01-07] MEDS: SODIUM BICARBONATE 650 MG TAB PO SCH ×2 (08:13→11:17)
[2019-01-07] MEDS: CLOPIDOGREL BISULFATE 75 MG TAB PO SCH (08:13)
[2019-01-07] MEDS: FOLIC ACID 1 MG TAB PO SCH (08:13)
[2019-01-07] MEDS: BUMETANIDE INJ 0.25MG/ML 4ML VIAL IV SCH ×2 (08:13→20:50)
[2019-01-07] MEDS: ASPIRIN 81 MG CHEW TAB PO SCH (08:13)
[2019-01-07] MEDS: ENOXAPARIN SOD INJ 60 MG/0.6 ML SYR SC SCH (08:13)
[2019-01-07] MEDS: BISOPROLOL FUMARATE 10 MG TAB PO SCH (08:41)
[2019-01-07] MEDS: BUDESONIDE/FORMOTEROL 160/4.5MCG INHALER INH SCH ×2 (11:00→20:00)
[2019-01-07] MEDS: DOCUSATE SODIUM 100 MG CAP PO SCH (11:13)
--- NOTE | 2019-01-07 11:44 | NUR ---
patient on portable athletic monitor. awaiting transfer to [facility]
--- NOTE | 2019-01-07 11:53 | NUR ---
report received, patient to arrive to unit alert and oriented with family member at bedside.
--- NOTE | 2019-01-07 12:00 | NUR ---
patient arrived to unit via wheelchair, alert and oriented with family at bedside. call simmons within reach and bed in lowest position.
--- NOTE | 2019-01-07 14:07 | Progress Note ---
DATE: SUBJECTIVE: The patient has been doing well. He denies chest pain, nausea, vomiting, or other complaints. Pulmonary status is improving. He remains on Bumex at 1 mg q.12 hours. Remains on enoxaparin, folic acid, Plavix, aspirin, cefepime, levothyroxine, simvastatin, budesonide, bisoprolol, and albuterol. PHYSICAL EXAMINATION: GENERAL: The patient has been alert, awake, calm, and cooperative. The patient had good urine output and oxygenation remains okay. VITAL SIGNS: The patient's pulse is 67, respiratory rate 14, and O2 saturation 96% on 3 L. HEENT: Atraumatic, normocephalic. NECK: Supple. CHEST: Diminished breath sounds, otherwise are clear. HEART: Heart sounds are normal. ABDOMEN: Soft. EXTREMITIES: No cyanosis, clubbing, or edema. NEUROLOGIC: He is awake, alert, calm, and cooperative. LABORATORY DATA: Blood cultures have remained negative. Labs show white count of 8.9, hemoglobin 15.1, and platelet count 184. Chemistry showed BUN of 20 and creatinine of 1.21. The patient's bilirubin is 2.5, AST 39, alkaline phosphatase 39, and albumin 4.7. ASSESSMENT AND PLAN: Clinically, the patient continues to improve. From my standpoint, the patient is back to baseline. The patient does have some hypoxemia and may need home O2 when he goes home, but from my standpoint he seems to be much better and may go out of the ICU. The patient has underlying CHF probably from diastolic dysfunction along with some mild COPD. The patient's last chest x-ray showed no significant change from mild vascular congestion or edema, but CT scan of the chest showed no significant edema and showed mostly slight emphysematous changes with a slight one area of small ground glass nodule in the right upper lobe. Clinically, the patient is much better. The patient has mild cardiomegaly and mild to moderate extensive atherosclerotic calcification on the CT scan. We will continue current care. From my standpoint, IV diuretics can be switched to p.o. diuretics. We can also stop the IV fluids and switch his IV cefepime to oral antibiotic such as Ceftin or Keflex. The patient can move out of the ICU and the patient can follow up with me as an outpatient depending on how he does and if his O2 saturations remain low even with walking and at any time if it is below 88%, then I think he may benefit from oxygen at home. MD KENNETH Brian/LANIE /[id number]
[2019-01-07] MEDS ORDERED: SODIUM CHLORIDE 0.9% 250ML 250 ML ONE (17:04)
--- NOTE | 2019-01-07 18:45 | NUR ---
rounded with hourly shift nurse, patient aware of change and in no distress. call simmons within reach, bed in lowest position and son at bedside.
--- NOTE | 2019-01-07 20:18 | Progress Note ---
DATE: 01/07/2019 Cardiology Progress Note SUBJECTIVE: No major events overnight. His breathing is a lot better today. OBJECTIVE: VITAL SIGNS: Temperature afebrile, pulse 81, respiratory rate 18, blood pressure 115/61, and saturating 96% on 2 L nasal cannula. GENERAL: No acute distress. CARDIOVASCULAR: Regular rate and rhythm. No murmurs, rubs, or gallops. LUNGS: Clear to auscultation bilaterally. Decreased air movement. ABDOMEN: Soft, nontender, and nondistended. NEURO AND PSYCH: Alert and oriented to person, place, and time. Normal affect. INPATIENT MEDICATIONS: Reviewed. LABORATORY DATA: Reviewed. TELEMETRY DATA: Reviewed. ASSESSMENT AND PLAN: 1. Susxc-vb-[id number] diastolic congestive heart failure exacerbation. 2. Acute hypoxemic respiratory failure. 3. Chronic obstructive pulmonary disease exacerbation. 4. Coronary artery disease, status post prior myocardial infarction and stenting. RECOMMENDATIONS: His breathing continues to improve. CT scan done for ruling out PE, showed no PE or pulmonary edema, but showed some emphysematous changes, which are upper lobe predominant. Continue current cardiovascular medications. Given wall motion abnormalities on echo and risk factors, plan for nuclear stress test tomorrow. Thank you for this consult. We will continue to follow. MD MATTHIAS Egan/AUTUMNL /[id number]
[2019-01-07] MEDS: SIMVASTATIN 20 MG TAB PO SCH (20:29)
--- NOTE | 2019-01-07 22:02 | NUR ---
Patient signed the consent for stress test .verbalised understanding.family member at bedside. advised nothing by mouth after 12mn.Assessment done.no resp.distress.no pain voiced.iv right ac is patent.bed locked and in lowest position.phone and call light within reach.informed to call for assistance as needed.
[2019-01-08] MEDS: ALBUTEROL SULF 0.083% NEB SOLN 3 ML NEB NEB SCH ×6 (03:00→23:00)
[2019-01-08] MEDS: LEVOTHYROXINE SODIUM 50 MCG TAB PO SCH (05:46)
[2019-01-08] MEDS: CEFEPIME 1GM/NS 0.9% 50 ML 50 ML IV SCH (06:12)
--- NOTE | 2019-01-08 06:50 | NUR ---
Bed side shift report given to the oncoming RN.stable condition.
--- NOTE | 2019-01-08 07:10 | NUR ---
BEDSIDE ROUNDS COMPLETE NO DISTRESS NOTED, UPDATED ON POC VOICED UNDERSTANDING, R AC 18G NO SS OF INFILTRATION NOTED,DENIES CHEST PAIN AT THIS TIME, PT NPO FOR NUCLEAR STRESS TEST AT THIS TIME, NO OTHER CO VOICED CALL LIGHT IN REACH WILL CONTINUE TO MONITOR
[2019-01-08] MEDS: BUDESONIDE/FORMOTEROL 160/4.5MCG INHALER INH SCH ×2 (08:25→20:20)
[2019-01-08 08:51] VITALS: BP 124/70
[2019-01-08] MEDS ORDERED: ENOXAPARIN SOD INJ 60 MG/0.6 ML SYR SC SCH (09:00)
[2019-01-08 09:30] VITALS: BP 124/70
[2019-01-08] MEDS ORDERED: REGADENOSON 0.4 MG/5 ML SYR IV ONE (09:58)
[2019-01-08 10:23] LABS: BASOPHILS # (AUTO) 0.1 (0.0-0.1); BASOPHILS % 0.5 % (0.0-1.0); EOSINOPHILS % 10.3 % (0.0-6.0); LYMPHOCYTES # (AUTO) 2.2 (1.0-3.2); LYMPHOCYTES % 22.9 % (18.0-39.1); MEAN CORPUSCULAR HGB CONC 34.7 g/dL (31-35); MEAN CORPUSCULAR VOLUME 92.3 fL (81-99); MONOCYTES % 10.1 % (4.4-11.3); NEUTROPHILS # (AUTO) 5.3 (2.1-6.9); NEUTROPHILS % 55.8 % (38.7-80.0); PLATELET COUNT 194 x10e3/uL (140-360); RED BLOOD COUNT 5.31 x10e6/uL (4.3-5.7); RED CELL DISTRIBUTION WIDTH 12.7 % (11.7-14.4)
--- NOTE | 2019-01-08 10:29 | NUR ---
DOWN TO STRESS TEST LEFT IN STABLE CONDITION
[2019-01-08 10:41] LABS: ANION GAP 16.7 mmol/L (8-16); CALCIUM 10.1 mg/dL (8.4-10.2); CREATININE, SERUM 1.2 mg/dL (0.72-1.25); POTASSIUM 3.7 mmol/L (3.5-5.1)
[2019-01-08] MEDS ORDERED: LACTULOSE SYRUP 20 GM/30 ML UDC PO PRN (10:45)
[2019-01-08] MEDS ORDERED: CYANOCOBALAMIN INJ 1,000 MCG/ML VIAL IM SCH (11:00)
--- NOTE | 2019-01-08 11:03 | NUR ---
SPOKE WITH DR ALMENDAREZ RE: CBC, BMP RESULTS NO NEW ORDERS AT THIS TIME
[2019-01-08 12:00] VITALS: BP 125/63
--- NOTE | 2019-01-08 12:40 | NUR ---
BACK TO RM FROM STRESS TEST, PT IN STABLE CONDITION, CALL LIGHT IN REACH WILL CONTINUE TO MONITOR.
[2019-01-08] MEDS: ASPIRIN 81 MG CHEW TAB PO SCH (13:14)
[2019-01-08] MEDS: BISOPROLOL FUMARATE 10 MG TAB PO SCH (13:15)
[2019-01-08] MEDS: DOCUSATE SODIUM 100 MG CAP PO SCH ×2 (13:15→17:00)
[2019-01-08] MEDS: FOLIC ACID 1 MG TAB PO SCH (13:15)
[2019-01-08] MEDS: CLOPIDOGREL BISULFATE 75 MG TAB PO SCH (13:15)
[2019-01-08] MEDS: NYSTATIN SUSPENSION 5 ML UDC PO SCH ×3 (13:16→23:19)
[2019-01-08] MEDS: ENOXAPARIN SOD INJ 40 MG/0.4 ML SYR SC SCH (13:16)
[2019-01-08] MEDS: BUMETANIDE INJ 0.25MG/ML 4ML VIAL IV SCH (13:17)
--- NOTE | 2019-01-08 14:46 | Progress Note ---
DATE: 01/08/2019 Cardiology Progress Note SUBJECTIVE: Stress test today. OBJECTIVE: VITAL SIGNS: Temperature afebrile, pulse 71, respiratory rate 19, blood pressure 124/70, and saturating 100% on 3 L nasal cannula. GENERAL: Elderly man, in no acute distress. CARDIOVASCULAR: Regular rate and rhythm. No murmurs, rubs, or gallops. LUNGS: Clear to auscultation bilaterally. ABDOMEN: Soft, nontender, nondistended. NEURO AND PSYCH: Alert and oriented to person, place, and time. Normal affect. INPATIENT MEDICATIONS: Reviewed. LABORATORY DATA: Reviewed. TELEMETRY DATA: Reviewed. ASSESSMENT: 1. Acute on chronic diastolic congestive heart failure exacerbation. 2. Acute hypoxemic respiratory failure. 3. Chronic obstructive pulmonary disease exacerbation. 4. Coronary artery disease status post prior myocardial infarction and stenting. RECOMMENDATIONS: Feels much better today. Stress test today, pending results. Continue cardiovascular medications otherwise. Thank you for this consult. We will continue to follow. MD MATTHIAS Egan/AUTUMNL /[id number]
[2019-01-08 16:00] VITALS: BP 116/71
--- NOTE | 2019-01-08 19:00 | NUR ---
BEDSIDE SHIFT REPORT GIVEN ONCOMING SHIFT, PT IN STABLE CONDITION, DENIES PAIN AT THIS TIME, CALL LIGHT IN REACH
--- NOTE | 2019-01-08 19:00 | NUR ---
Received bedside shift report from day shift RN. Patient is laying on the bed, not in distress. Call light within reach, bed set low, side rails up x2, and wheels lock.
[2019-01-08 19:30] VITALS: BP 111/72
[2019-01-08 20:00] VITALS: BP 111/72
[2019-01-08] MEDS: SIMVASTATIN 20 MG TAB PO SCH (20:13)
--- NOTE | 2019-01-08 22:23 | Myoview Stress Test ---
DATE OF STUDY: 01/07/2019 16:49:00 PROCEDURE TITLE: Rest/stress single isotope SPECT imaging with pharmacologic stress and gated SPECT imaging. INDICATION: CHF. PROCEDURE IN DETAIL: Pharmacologic stress testing was performed with regadenoson per protocol. The heart rate was 67 beats per minute at rest and increased to 110 beats per minute during the regadenoson infusion. The rest blood pressure was 120/65 mmHg and decreased to 116/70 mmHg, which is a normal response. The resting electrocardiogram demonstrated normal sinus rhythm with right bundle-branch block. Old inferior and anterior infarct were noted. There were no ST-segment changes suggestive of myocardial ischemia. Myocardial perfusion imaging was performed at rest following the injection of 10.7 mCi of tetrofosmin. At peak pharmacologic effect, the patient was injected with 31 mCi of tetrofosmin. Gated post-stress tomographic imaging was performed. FINDINGS: The overall quality of study is fair. SPECT images demonstrate a large severe perfusion defect at the distal anterior, distal lateral, distal septal, and [id number]-bi-[id number] inferior romero and apex on both rest and stress. Gated SPECT imaging reveals akinesis of the distal lateral, distal anterior, distal septal, and ygm-ao-vvuutu inferior romero and apex. The left ventricular ejection fraction was calculated to be 76%. IMPRESSION: Myocardial perfusion imaging is abnormal. There is a large transmural scar in the distal lateral, distal anterior, distal septal, sxl-az-bunsmq inferior romero, and apex. Overall, left ventricular systolic function was normal with regional wall motion abnormalities as above. Sintia mAaya MD ABS/MODL /[id number]
[2019-01-09] VITALS (7 sets, daily range): BP systolic 109–127; BP diastolic 51–74
[2019-01-09] MEDS: ALBUTEROL SULF 0.083% NEB SOLN 3 ML NEB NEB SCH ×6 (03:00→23:00)
[2019-01-09] MEDS: LEVOTHYROXINE SODIUM 50 MCG TAB PO SCH (05:01)
[2019-01-09] MEDS: NYSTATIN SUSPENSION 5 ML UDC PO SCH ×4 (05:56→23:28)
[2019-01-09] MEDS: BUDESONIDE/FORMOTEROL 160/4.5MCG INHALER INH SCH ×2 (07:00→20:00)
--- NOTE | 2019-01-09 07:14 | NUR ---
PT ALERT RESP EVEN AND UNLABORED AT THIS TIME NO DISTRESS NOTED . PT HAS FAMILY MEMBER AT BEDSIDE, PT HAS NO C/O PAIN WHEN ASKED, CALL LIGHT IN REACH.
[2019-01-09] MEDS: FOLIC ACID 1 MG TAB PO SCH (08:58)
[2019-01-09] MEDS: DOCUSATE SODIUM 100 MG CAP PO SCH ×2 (08:58→16:43)
[2019-01-09] MEDS: CLOPIDOGREL BISULFATE 75 MG TAB PO SCH (08:58)
[2019-01-09] MEDS: ASPIRIN 81 MG CHEW TAB PO SCH (08:58)
[2019-01-09] MEDS: BUMETANIDE 1 MG TAB PO SCH (08:58)
[2019-01-09] MEDS: ENOXAPARIN SOD INJ 40 MG/0.4 ML SYR SC SCH (08:59)
[2019-01-09] MEDS: BISOPROLOL FUMARATE 10 MG TAB PO SCH (09:00)
--- NOTE | 2019-01-09 11:20 | NUR ---
PT AMB WITH PT FOR HOME 02 EVAL.
--- NOTE | 2019-01-09 13:26 | Progress Note ---
DATE: SUBJECTIVE: The patient is doing well. The patient has been moved out from the ICU to the medical floor. MEDICATIONS: Include: 1. Bisoprolol. 2. Enoxaparin. 3. Bumex. 4. Docusate. 5. Folic acid. 6. Plavix. 7. Aspirin. 8. Budesonide. 9. Nystatin. 10. Levothyroxine. 11. Simvastatin. 12. Lactulose. 13. Albuterol. OBJECTIVE: GENERAL: The patient has been doing well otherwise. VITAL SIGNS: The patient has been afebrile, pulse 62, respiratory rate is 18, and blood pressure 116/56. HEENT: Atraumatic and normocephalic. NECK: Supple. CHEST: Clear. HEART: Sounds are normal. ABDOMEN: Soft. EXTREMITIES: Show no cyanosis, clubbing, or edema. LABORATORY DATA: The patient's hemoglobin remains slightly high at 17, but otherwise the patient seems to be doing alright. Chemistries showed a BUN of 22 and creatinine stable at 1.2. The patient is overall stable at this point. His x-rays and radiological imaging have been stable. Last chest x-ray from 01/06/2019, was unremarkable. The patient had no significant change in mild pulmonary vascular congestion, but CT scan did not show any significant CHF. The patient is waiting to get a stress test. Clinically, he is improved. The patient may require home O2 and we will ask for a home O2 evaluation and , it will be okay to discharge him on 2-3 liters O2 via nasal cannula with followup with me as an outpatient. I have discussed with the patient need for a followup. I have given him my card for followup. IMPRESSION: 1. Chronic obstructive pulmonary disease exacerbation. 2. Mild congestive heart failure with diastolic dysfunction. 3. High lactic acid level at the time of admission. 4. Mild renal insufficiency. 5. Clinically, the patient is much improved. MD KENNETH Brian/MODL /[id number]
--- NOTE | 2019-01-09 15:47 | Progress Note ---
DATE: 01/09/2019 Cardiology Progress Note SUBJECTIVE: No major events overnight. OBJECTIVE: VITAL SIGNS: Temperature afebrile, pulse 65, respiratory rate 18, blood pressure 127/60 saturating 97% on 3 L nasal cannula. GENERAL: No acute distress. CARDIOVASCULAR: Regular rate and rhythm. No murmurs, rubs, or gallops. LUNGS: Clear to auscultation bilaterally. ABDOMEN: Soft, nontender, nondistended. NEURO AND PSYCH: Alert and oriented to person, place, and time. Normal affect. INPATIENT MEDICATIONS: Reviewed. LABORATORY DATA: Reviewed. TELEMETRY DATA: Reviewed. ASSESSMENT: 1. Acute on chronic diastolic congestive heart failure exacerbation. 2. Acute hypoxemic respiratory failure. 3. Chronic obstructive pulmonary disease exacerbation. 4. Coronary artery disease status post history of myocardial infarction and stenting. RECOMMENDATIONS: Had a nuclear stress test yesterday, which showed a small scar in the apex, otherwise no reversible defects. Continue current cardiovascular medications. Okay to be discharged on current regimen including 2 mg of Bumex oral daily, aspirin, Plavix, and simvastatin. Follow up in the office in 2 weeks post discharge. Thank you for this consult. We will continue to follow. MD MATTHIAS Egan/LANIE /[id number]
--- NOTE | 2019-01-09 15:57 | NUR ---
Spoke to Dr. Crawford this morning regarding discharge plan. States will do home oxygen eval and order oxygen if needed. Anticipate discharge tomorrow. Home O2 eval done. Pt's o2 sat dropped to 80% on exertion and improved on 3L of oxygen. JOVANNI spoke to pt at bedside. He directed CM to speak with his daughter Pauline Perez ([phone]), who's also at bedside. Daughter states to use any company that takes pt's insurance and would prefer anyone that can deliver quickly, since pt is anticipating discharge for tomorrow. Choice letter signed and placed in chart. Copy to pt's daughter. Referral was faxed to [employer] at [phone]. Message left for Angel with [email or web address] regarding home oxygen order and CM asked him to call pt's daughter since she had some questions. Gave him daughter's contact information. Addendum: 01/09/19 at 1606 by Linda Ortiz CM correct fax number [phone]
--- NOTE | 2019-01-09 16:02 | NUR ---
Discontinuing physical therapy services since patient is Mod I in functional mobility with out AD. Thank you Addendum: 01/09/19 at 1603 by Joey farr PT Amended: Links added.
--- NOTE | 2019-01-09 18:45 | NUR ---
Received bedside report from day shift RN. Patient is A/Ox4 while not in distress. Bed set low, wheels lock, call light within reach and bed alarm on.
--- NOTE | 2019-01-09 18:49 | NUR ---
report given to oncoming nurse for continued care. pt stable at this time.
[2019-01-09] MEDS: SIMVASTATIN 20 MG TAB PO SCH (21:31)
[2019-01-10] VITALS: BP 110/54
[2019-01-10] MEDS: ALBUTEROL SULF 0.083% NEB SOLN 3 ML NEB NEB SCH ×2 (03:00→07:00)
[2019-01-10 04:00] VITALS: BP 110/56
[2019-01-10] MEDS: LEVOTHYROXINE SODIUM 50 MCG TAB PO SCH (05:06)
[2019-01-10] MEDS: NYSTATIN SUSPENSION 5 ML UDC PO SCH (06:02)
[2019-01-10] MEDS: BUDESONIDE/FORMOTEROL 160/4.5MCG INHALER INH SCH (07:00)
--- NOTE | 2019-01-10 07:40 | NUR ---
RECEIVED PATIENT RESTING IN BED NO SIGNS OF DISTRESS. AT BEDSIDE. BED LOW, WHEELS LOCKED, SIDE RAILS X2. CALL LIGHT IN REACH WILL CONTINUE TO MONITOR.
[2019-01-10] MEDS: BISOPROLOL FUMARATE 10 MG TAB PO SCH (07:55)
[2019-01-10] MEDS: DOCUSATE SODIUM 100 MG CAP PO SCH (09:21)
[2019-01-10] MEDS: BUMETANIDE 1 MG TAB PO SCH (09:21)
[2019-01-10] MEDS: FOLIC ACID 1 MG TAB PO SCH (09:21)
[2019-01-10] MEDS: CLOPIDOGREL BISULFATE 75 MG TAB PO SCH (09:21)
[2019-01-10] MEDS: ASPIRIN 81 MG CHEW TAB PO SCH (09:21)
[2019-01-10] MEDS: ENOXAPARIN SOD INJ 40 MG/0.4 ML SYR SC SCH (09:21)
[2019-01-10 09:50] VITALS: BP 96/64
[2019-01-10 10:04] VITALS: BP 96/64
[2019-01-10] MEDS ORDERED: VENTOLIN HFA18 GM PO (10:22)
[2019-01-10] MEDS ORDERED: BUMETANIDE1 MG PO (10:22)
[2019-01-10] MEDS ORDERED: PREDNISONE10 MG PO (10:23)
[2019-01-10] MEDS ORDERED: SYMBICORT 16010.2 GM PO (10:24)
--- NOTE | 2019-01-10 10:34 | NUR ---
PATIENT A/O X3, EVEN RESPIRATIONS ON 3LNC. NO SIGNS OF DISTRESS. BOWEL SOUNDS ACTIVE, SKIN INTACT, NO EDEMA. PATIENT AMBULATES WITH STANDBY ASSIST. RIGHT AC 18 G[address]GE [address]. IV INTACT AND PATENT. VITAL SIGNS STABLE. FAMILY AT BEDSIDE WILL CONTINUE TO MONITOR PATIENT.
--- NOTE | 2019-01-10 10:48 | NUR ---
REMOVED PATIENTS IV. CATHETER TIP INTACT AND PRESSURE DRESSING APPLIED.
--- NOTE | 2019-01-10 10:57 | NUR ---
IMM EXPLAINED TO PT, SIGNED BY PT AND PLACED IN CHART COPY TO PT IN CARE TRANSITIONS FOLDER
--- NOTE | 2019-01-10 11:04 | NUR ---
PATIENT DISCHARGED FROM FACILITY. PATIENT GATHERED ALL PERSONAL BELONGINGS, DISCHARGE INSTRUCTIONS/PRESCRIPTIONS AND FOLLOW UP INFORMATION. LEFT UNIT IN WHEELCHAIR AND WENT HOME VIA PRIVATE AUTO. NO SIGNS OF DISTRESS WHEN LEAVING FACILITY.
--- NOTE | 2019-01-10 12:07 | Discharge Summary ---
He is a 78-year-old male patient, who presented to the emergency room with a complaint of severe shortness of breath and respiratory distress. ADMITTING IMPRESSION/DIAGNOSES: Acute respiratory distress with hypoxemia and hypoxemic respiratory failure and the etiology for that was acute on chronically decompensated diastolic congestive heart failure and chronic obstructive pulmonary disease exacerbation. The patient has polycythemia secondary to the hypoxemia and we were suspecting pulmonary embolism, which was ruled out. We were suspecting sepsis because of the lactic acidosis, but sepsis was also ruled out and lactic acidosis turns out to be from the severe hypoxemia. The patient has carotid artery disease and gastritis. HOSPITAL COURSE SUMMARY: The patient was admitted with the above diagnosis. The patient had a CT scan, PE protocol done. Venous Doppler study was done, which was negative. The patient had an echocardiogram done, which showed diastolic dysfunction and questionable wall motion abnormalities. So, the patient had a nuclear stress test done, which showed just scar tissue, no acute ischemia. The patient was given IV antibiotic and blood cultures and urine cultures were obtained, which were negative. So, antibiotic was discontinued. The patient was given diuretics, Lasix which was changed to Bumex. The patient was also given home oxygen arrangement. The patient was given Solu-Medrol. Now upon stabilization, the patient will be discharged home on home oxygen, oral prednisone, and Symbicort. The patient wants portable oxygen. The patient was given vitamins also. MD AUGUSTINE Terry/LANIE /[id number]
== END 2019-01-10 11:05 | disposition home or self-care (01) | DRG 291 ==
LOC: ER 08:39 → ERHOLD 11:19 → MED/SURG 12:23 → ICU 19:40 → MED/SURG 01-07 12:05
PROVIDERS: ADMIT Internal Medicine; ATTEND Internal Medicine
DX: I11.0 Hypertensive heart disease with heart failure (principal); J96.01 Acute respiratory failure with hypoxia; J44.1 Chronic obstructive pulmonary disease with (acute) exacerbation; N17.9 Acute kidney failure, unspecified; E87.2 Acidosis; I50.33 Acute on chronic diastolic (congestive) heart failure; D75.1 Secondary polycythemia; K29.70 Gastritis, unspecified, without bleeding; I25.2 Old myocardial infarction; J45.909 Unspecified asthma, uncomplicated; Z87.891 Personal history of nicotine dependence; G62.1 Alcoholic polyneuropathy; Z95.5 Presence of coronary angioplasty implant and graft
CPT/HCPCS: 36415; 36600; 71045; 71260; 74177; 76700; 78452; 80048; 80053; 80061; 81001; 82150; 82550; 82553; 82607; 82805; 82948; 83605; 83690; 83735; 83880; 84425; 84484; 85025; 85610; 87040; 87086; 93005; 93017; 93306; 93970; 94640; 94664; 97139; 99284; A9502; J0692; J0696; J1650; J1940; J2920; J3411; J3420; J7030; J7050; P9047; Q9967

== ENCOUNTER 2021-01-24 03:03 | Inpatient (IN) | payer MEDICARE ==
[~2021-01-24] VITALS: Ht 154.9 cm; Wt 53.5 kg
[~2021-01-24 03:03] MED LIST: ALBUTEROL0.63 MG/3 PO; ASPIR 8181 MG PO; B-121000 MCG PO; BUMETANIDE1 MG PO; CENTRUM SILVER1 EAC2; CLOPIDOGREL75 MG PO; CRESTOR10 MG PO; FOLIC ACID1 MG PO; GABAPENTIN300 MG PO; LEVOTHYROXINE50 MCG PO; PREDNISONE10 MG PO; SYMBICORT 16010.2 GM PO; VENTOLIN HFA18 GM PO; ZEBETA10 MG PO; [UNRECOGNIZED DRUG - OTHER]
[2021-01-24] MEDS ORDERED: SODIUM CHLORIDE 0.9% 1000ML 1,000 ML IV STA ×2 (03:07→03:35)
[2021-01-24] MEDS: CEFTRIAXONE 1 GM in SODIUM CHLORIDE 0.9% 50ML 50 ML IV SCH ×2 (03:35→10:03)
[2021-01-24 03:39] LABS: ALBUMIN 4.7 g/dL (3.5-5.0); ALBUMIN/GLOBULIN RATIO 1.3 (0.8-2.0); ANION GAP 22.1 mmol/L (8-16); CALCIUM 9.8 mg/dL (8.4-10.2); CREATININE, SERUM 1.52 mg/dL (0.72-1.25); POTASSIUM 5.1 mmol/L (3.5-5.1)
[2021-01-24 03:39] LABS: BASOPHILS % 0.4 % (0.0-1.0); EOSINOPHILS # (AUTO) 0.1 (0.0-0.4); EOSINOPHILS % 1.2 % (0.0-6.0); HEMATOCRIT 54.8 % (38.2-49.6); HEMOGLOBIN 18.8 g/dL (14.0-18.0); LYMPHOCYTES # (AUTO) 1.5 (1.0-3.2); LYMPHOCYTES % 13.8 % (18.0-39.1); MEAN CORPUSCULAR HEMOGLOBIN 32.1 pg (28-32); MEAN CORPUSCULAR HGB CONC 34.3 g/dL (31-35); MEAN CORPUSCULAR VOLUME 93.5 fL (81-99); MONOCYTES # (AUTO) 0.9 (0.2-0.8); MONOCYTES % 8.2 % (4.4-11.3); NEUTROPHILS # (AUTO) 8.1 (2.1-6.9); NEUTROPHILS % 76.1 % (38.7-80.0); PLATELET COUNT 203 x10e3/uL (140-360); RED BLOOD COUNT 5.86 x10e6/uL (4.3-5.7); RED CELL DISTRIBUTION WIDTH 12.5 % (11.7-14.4)
[2021-01-24 03:46] LABS: CREATINE KINASE MB 2.8 ng/mL (0-5.0)
[2021-01-24 03:47] LABS: B-TYPE NATRIURETIC PEPTIDE2 264.9 pg/mL (0-100)
[2021-01-24] MEDS: SODIUM CHLORIDE 0.9% 1000ML 1,000 ML IV SCH ×2 (06:00→16:49)
[2021-01-24 06:14] LABS: ALBUMIN 3.3 g/dL (3.5-5.0); ALBUMIN/GLOBULIN RATIO 1.3 (0.8-2.0); ANION GAP 16.5 mmol/L (8-16); CALCIUM 7.9 mg/dL (8.4-10.2); CREATININE, SERUM 1.23 mg/dL (0.72-1.25); POTASSIUM 4.5 mmol/L (3.5-5.1)
[2021-01-24 06:27] LABS: CLARITY,URINE CLEAR (CLEAR); COLOR,URINE YELLOW (YELLOW)
[2021-01-24 06:28] LABS: KETONES,URINE NEGATIVE (NEGATIVE); LEUKOCYTE ESTERASE ,URINE TRACE (NEGATIVE); NITRITE,URINE NEGATIVE (NEGATIVE); PROTEIN,URINE DIPSTICK NEGATIVE (NEGATIVE); URINE UROBILINOGEN 0.2 mg/dL (0.2 - 1)
[2021-01-24 06:46] LABS: BACTERIA,URINE RARE /HPF; EPITHELIAL CELLS,URINE FEW /LPF
[2021-01-24] MEDS ORDERED: TRELEGY ELLIPT1 EACH (10:09)
[2021-01-24] MEDS ORDERED: CORLANOR5 MG PO (10:09)
[2021-01-24] MEDS ORDERED: LEVALBUTEROL HCL SOLN NEBU 1.25 MG/3 ML NEB INH PRN (10:15)
[2021-01-24] MEDS ORDERED: BISOPROLOL FUMARATE 10 MG TAB PO SCH (10:15)
[2021-01-24 10:30] VITALS: BP 127/79
[2021-01-24] MEDS ORDERED: CEFTRIAXONE 1 GM in SODIUM CHLORIDE 0.9% 50ML 50 ML IV SCH (11:00)
[2021-01-24] MEDS: LEVALBUTEROL HCL SOLN NEBU 1.25 MG/3 ML NEB INH SCH ×3 (11:02→20:15)
[2021-01-24] MEDS ORDERED: FAMOTIDINE 20 MG/2 ML VIAL IV STA (11:04)
[2021-01-24] MEDS ORDERED: SALIVA SUBSTITUTE 45 ML LIQD MM PRN (11:15)
[2021-01-24 11:42] VITALS: BP 127/79
[2021-01-24 11:44] VITALS: BP 127/79
[2021-01-24] MEDS: METHYLPREDNISOLONE SOD SUCC 40 MG/ML VIAL 1ML IV SCH ×2 (12:39→17:32)
[2021-01-24] MEDS: LEVOTHYROXINE SODIUM 50 MCG TAB PO SCH (12:39)
[2021-01-24] MEDS: ACETYLCYSTEINE 20% INHAL SOLN 30 ML VIAL INH SCH ×2 (13:00→20:15)
[2021-01-24 16:00] VITALS: BP 118/64
[2021-01-24] MEDS ORDERED: ONDANSETRON HCL INJ 2MG/ML 2ML 2 MG/ML VIAL IV PRN (16:15)
[2021-01-24] MEDS: ENOXAPARIN SOD INJ 40 MG/0.4 ML SYR SC SCH (17:31)
[2021-01-24] MEDS: FAMOTIDINE 20 MG/2 ML VIAL IV SCH (17:31)
[2021-01-24 20:00] VITALS: BP 102/74
[2021-01-24] MEDS ORDERED: GABAPENTIN 300 MG CAP PO SCH (21:00)
[2021-01-24] MEDS ORDERED: GABAPENTIN 300 MG CAP PO PRN (21:00)
[2021-01-24] MEDS ORDERED: SIMVASTATIN 20 MG TAB PO SCH (21:00)
[2021-01-24 21:13] LABS: CREATINE KINASE MB 3.5 ng/mL (0-5.0)
[2021-01-24 22:10] VITALS: BP 102/74
[2021-01-25] VITALS (7 sets, daily range): BP systolic 99–170; BP diastolic 56–69
[2021-01-25] MEDS: LEVALBUTEROL HCL SOLN NEBU 1.25 MG/3 ML NEB INH SCH ×4 (01:00→19:50)
[2021-01-25] MEDS: METHYLPREDNISOLONE SOD SUCC 40 MG/ML VIAL 1ML IV SCH ×2 (02:50→16:38)
[2021-01-25] MEDS: LEVOTHYROXINE SODIUM 50 MCG TAB PO SCH (06:20)
[2021-01-25] MEDS: SODIUM CHLORIDE 0.9% 1000ML 1,000 ML IV SCH ×2 (06:20→18:33)
[2021-01-25 06:42] LABS: HEMATOCRIT 48.8 % (38.2-49.6); HEMOGLOBIN 16.7 g/dL (14.0-18.0); LYMPHOCYTES # (AUTO) 0.5 (1.0-3.2); LYMPHOCYTES % 14.4 % (18.0-39.1); MEAN CORPUSCULAR HEMOGLOBIN 32.1 pg (28-32); MEAN CORPUSCULAR HGB CONC 34.2 g/dL (31-35); MEAN CORPUSCULAR VOLUME 93.8 fL (81-99); MONOCYTES # (AUTO) 0.1 (0.2-0.8); NEUTROPHILS # (AUTO) 2.7 (2.1-6.9); NEUTROPHILS % 82.3 % (38.7-80.0); PLATELET COUNT 155 x10e3/uL (140-360); RED CELL DISTRIBUTION WIDTH 12.4 % (11.7-14.4)
[2021-01-25 07:01] LABS: MAGNESIUM 1.8 MG/DL (1.3-2.1); PHOSPHORUS 3.3 MG/DL (2.3-4.7)
[2021-01-25 07:04] LABS: ALBUMIN 3.4 g/dL (3.5-5.0); ALBUMIN/GLOBULIN RATIO 1.3 (0.8-2.0); ANION GAP 12.8 mmol/L (8-16); CALCIUM 8.6 mg/dL (8.4-10.2); CREATININE, SERUM 0.97 mg/dL (0.72-1.25); POTASSIUM 4.8 mmol/L (3.5-5.1)
[2021-01-25] MEDS: ACETYLCYSTEINE 20% INHAL SOLN 30 ML VIAL INH SCH ×3 (07:24→19:50)
[2021-01-25 07:25] LABS: THYROID STIMULATING HORMONE 0.996 uIU/mL (0.350-4.940)
[2021-01-25] MEDS: FAMOTIDINE 20 MG/2 ML VIAL IV SCH ×2 (09:09→16:37)
[2021-01-25] MEDS: CLOPIDOGREL BISULFATE 75 MG TAB PO SCH (09:11)
[2021-01-25] MEDS: ASPIRIN 81 MG CHEW TAB PO SCH (09:11)
[2021-01-25] MEDS: FOLIC ACID 1 MG TAB PO SCH (09:11)
[2021-01-25] MEDS ORDERED: MAGNESIUM HYDROXIDE 30 ML UDC PO PRN (10:30)
[2021-01-25 11:13] LABS: CREATINE KINASE 187 IU/L (30-200)
[2021-01-25] MEDS: CEFTRIAXONE 1 GM in SODIUM CHLORIDE 0.9% 50ML 50 ML IV SCH (11:26)
[2021-01-25] MEDS ORDERED: IPRATROPIUM BROMIDE 0.02% 2.5 ML NEB NEB SCH (13:00)
[2021-01-25] MEDS: ENOXAPARIN SOD INJ 40 MG/0.4 ML SYR SC SCH (16:38)
[2021-01-25] MEDS: SENNA-S TABLET PO SCH (16:38)
[2021-01-25] MEDS: BUDESONIDE/FORMOTEROL 160/4.5MCG INHALER INH SCH (19:50)
[2021-01-26] VITALS (8 sets, daily range): BP systolic 109–164; BP diastolic 55–80
[2021-01-26] MEDS: LEVALBUTEROL HCL SOLN NEBU 1.25 MG/3 ML NEB INH SCH ×4 (01:28→20:20)
[2021-01-26] MEDS: LEVOTHYROXINE SODIUM 50 MCG TAB PO SCH (06:00)
[2021-01-26] MEDS: ACETYLCYSTEINE 20% INHAL SOLN 30 ML VIAL INH SCH (07:44)
[2021-01-26] MEDS: BUDESONIDE/FORMOTEROL 160/4.5MCG INHALER INH SCH ×2 (08:00→20:35)
[2021-01-26] MEDS: SENNA-S TABLET PO SCH ×2 (09:33→17:00)
[2021-01-26] MEDS: FAMOTIDINE 20 MG/2 ML VIAL IV SCH (09:33)
[2021-01-26] MEDS: FOLIC ACID 1 MG TAB PO SCH (09:33)
[2021-01-26] MEDS: METHYLPREDNISOLONE SOD SUCC 40 MG/ML VIAL 1ML IV SCH (09:33)
[2021-01-26] MEDS: CLOPIDOGREL BISULFATE 75 MG TAB PO SCH (09:33)
[2021-01-26] MEDS: ASPIRIN 81 MG CHEW TAB PO SCH (09:33)
[2021-01-26] MEDS ORDERED: SODIUM CHLORIDE 0.9% 250ML 250 ML ONE (10:53)
[2021-01-26] MEDS: CEFTRIAXONE 1 GM in SODIUM CHLORIDE 0.9% 50ML 50 ML IV SCH (10:59)
[2021-01-26] MEDS: FAMOTIDINE 20 MG TAB PO SCH (16:30)
[2021-01-26] MEDS: ENOXAPARIN SOD INJ 40 MG/0.4 ML SYR SC SCH (17:00)
[2021-01-26] MEDS: METOPROLOL TARTRATE 25 MG TAB PO SCH (17:00)
[2021-01-27] VITALS (9 sets, daily range): BP systolic 114–132; BP diastolic 68–83
[2021-01-27] MEDS: LEVALBUTEROL HCL SOLN NEBU 1.25 MG/3 ML NEB INH SCH ×4 (01:00→19:46)
[2021-01-27] MEDS: LEVOTHYROXINE SODIUM 50 MCG TAB PO SCH (07:00)
[2021-01-27] MEDS ORDERED: METHYLPREDNISOLONE SOD SUCC 40 MG/ML VIAL 1ML IV SCH (07:30)
[2021-01-27] MEDS: BUDESONIDE/FORMOTEROL 160/4.5MCG INHALER INH SCH ×2 (08:30→19:46)
[2021-01-27] MEDS: SENNA-S TABLET PO SCH ×2 (09:00→17:00)
[2021-01-27] MEDS: METOPROLOL TARTRATE 25 MG TAB PO SCH ×2 (09:26→16:36)
[2021-01-27] MEDS: CLOPIDOGREL BISULFATE 75 MG TAB PO SCH (09:26)
[2021-01-27] MEDS: ASPIRIN 81 MG CHEW TAB PO SCH (09:26)
[2021-01-27] MEDS: FOLIC ACID 1 MG TAB PO SCH (09:26)
[2021-01-27] MEDS: FAMOTIDINE 20 MG TAB PO SCH ×2 (09:26→16:36)
[2021-01-27 09:37] LABS: BASOPHILS % 0.1 % (0.0-1.0); EOSINOPHILS % 0.1 % (0.0-6.0); HEMATOCRIT 48.4 % (38.2-49.6); HEMOGLOBIN 16.2 g/dL (14.0-18.0); LYMPHOCYTES # (AUTO) 1.9 (1.0-3.2); LYMPHOCYTES % 18.3 % (18.0-39.1); MEAN CORPUSCULAR HEMOGLOBIN 32.1 pg (28-32); MEAN CORPUSCULAR HGB CONC 33.5 g/dL (31-35); MONOCYTES # (AUTO) 1.1 (0.2-0.8); MONOCYTES % 10.7 % (4.4-11.3); NEUTROPHILS # (AUTO) 7.1 (2.1-6.9); NEUTROPHILS % 70.2 % (38.7-80.0); PLATELET COUNT 185 x10e3/uL (140-360); RED BLOOD COUNT 5.04 x10e6/uL (4.3-5.7); RED CELL DISTRIBUTION WIDTH 12.6 % (11.7-14.4)
[2021-01-27] MEDS: DOXYCYCLINE HYCLATE TABLET 100 MG TAB PO SCH ×2 (09:45→20:07)
[2021-01-27 09:52] LABS: ANION GAP 14.7 mmol/L (8-16); CALCIUM 8.7 mg/dL (8.4-10.2); CREATININE, SERUM 1.17 mg/dL (0.72-1.25); POTASSIUM 3.7 mmol/L (3.5-5.1)
[2021-01-27] MEDS: CEFTRIAXONE 1 GM in SODIUM CHLORIDE 0.9% 50ML 50 ML IV SCH (10:24)
[2021-01-27] MEDS: ENOXAPARIN SOD INJ 40 MG/0.4 ML SYR SC SCH (16:36)
[2021-01-27] MEDS: ACETYLCYSTEINE 200 MG/ML 4ML VIAL INH SCH (19:46)
[2021-01-28] VITALS (7 sets, daily range): BP systolic 118–144; BP diastolic 62–82
[2021-01-28] MEDS: LEVALBUTEROL HCL SOLN NEBU 1.25 MG/3 ML NEB INH SCH ×4 (00:55→19:40)
[2021-01-28 04:57] LABS: BASOPHILS % 0.1 % (0.0-1.0); EOSINOPHILS % 0.1 % (0.0-6.0); HEMATOCRIT 46.7 % (38.2-49.6); LYMPHOCYTES # (AUTO) 1.4 (1.0-3.2); MEAN CORPUSCULAR HGB CONC 34.3 g/dL (31-35); MEAN CORPUSCULAR VOLUME 93.4 fL (81-99); MONOCYTES % 12.7 % (4.4-11.3); NEUTROPHILS # (AUTO) 5.3 (2.1-6.9); NEUTROPHILS % 68.6 % (38.7-80.0); PLATELET COUNT 177 x10e3/uL (140-360); RED CELL DISTRIBUTION WIDTH 12.3 % (11.7-14.4)
[2021-01-28 05:18] LABS: ANION GAP 14.3 mmol/L (8-16); CALCIUM 8.6 mg/dL (8.4-10.2); CREATININE, SERUM 1.09 mg/dL (0.72-1.25); POTASSIUM 4.3 mmol/L (3.5-5.1)
[2021-01-28] MEDS: LEVOTHYROXINE SODIUM 50 MCG TAB PO SCH (05:20)
[2021-01-28] MEDS ORDERED: METHYLPREDNISOLONE SOD SUCC 40 MG/ML VIAL 1ML IV SCH (07:30)
[2021-01-28] MEDS: BUDESONIDE/FORMOTEROL 160/4.5MCG INHALER INH SCH ×2 (07:50→19:40)
[2021-01-28] MEDS: ACETYLCYSTEINE 200 MG/ML 4ML VIAL INH SCH ×2 (07:50→19:40)
[2021-01-28] MEDS: FOLIC ACID 1 MG TAB PO SCH (09:36)
[2021-01-28] MEDS: ASPIRIN 81 MG CHEW TAB PO SCH (09:36)
[2021-01-28] MEDS: CLOPIDOGREL BISULFATE 75 MG TAB PO SCH (09:38)
[2021-01-28] MEDS: SENNA-S TABLET PO SCH ×2 (09:38→17:18)
[2021-01-28] MEDS: METOPROLOL TARTRATE 25 MG TAB PO SCH ×2 (09:38→17:18)
[2021-01-28] MEDS: DOXYCYCLINE HYCLATE TABLET 100 MG TAB PO SCH ×2 (09:38→20:19)
[2021-01-28] MEDS: FAMOTIDINE 20 MG TAB PO SCH ×2 (09:45→17:17)
[2021-01-28] MEDS: CEFTRIAXONE 1 GM in SODIUM CHLORIDE 0.9% 50ML 50 ML IV SCH (11:39)
[2021-01-28] MEDS: ENOXAPARIN SOD INJ 40 MG/0.4 ML SYR SC SCH (17:18)
[2021-01-29 00:32] VITALS: BP 128/73
[2021-01-29] MEDS: LEVALBUTEROL HCL SOLN NEBU 1.25 MG/3 ML NEB INH SCH ×3 (01:10→12:50)
[2021-01-29 05:06] VITALS: BP 128/83
[2021-01-29] MEDS: LEVOTHYROXINE SODIUM 50 MCG TAB PO SCH (05:20)
[2021-01-29] MEDS: BUDESONIDE/FORMOTEROL 160/4.5MCG INHALER INH SCH (06:44)
[2021-01-29] MEDS: ACETYLCYSTEINE 200 MG/ML 4ML VIAL INH SCH (06:44)
[2021-01-29 08:18] VITALS: BP 128/83
[2021-01-29 08:44] VITALS: BP 131/75
[2021-01-29] MEDS: SENNA-S TABLET PO SCH (09:00)
[2021-01-29] MEDS ORDERED: PREDNISONE 20 MG TAB PO SCH (09:00)
[2021-01-29] MEDS: FOLIC ACID 1 MG TAB PO SCH (09:41)
[2021-01-29] MEDS: ASPIRIN 81 MG CHEW TAB PO SCH (09:41)
[2021-01-29] MEDS: FAMOTIDINE 20 MG TAB PO SCH (09:41)
[2021-01-29] MEDS: METOPROLOL TARTRATE 25 MG TAB PO SCH (09:42)
[2021-01-29] MEDS: CLOPIDOGREL BISULFATE 75 MG TAB PO SCH (09:42)
[2021-01-29] MEDS: DOXYCYCLINE HYCLATE TABLET 100 MG TAB PO SCH (09:42)
[2021-01-29] MEDS ORDERED: DOXYCYCLINE HY100 MG PO (11:55)
[2021-01-29] MEDS ORDERED: METOPROLOL TART25 MG PO (11:55)
[2021-01-29] MEDS ORDERED: PREDNISONE20 MG PO (11:56)
[2021-01-29] MEDS ORDERED: PREDNISONE10 MG PO (11:56)
[2021-01-29] MEDS ORDERED: ONDANSETRON HCL 4 MG ORAL DISINTEGRATING TAB PO PRN (12:15)
[2021-01-29 12:32] VITALS: BP 102/73
== END 2021-01-29 13:08 | disposition home or self-care (01) | DRG 871 ==
LOC: ER 03:15 → ERHOLD 05:05 → MED/SURG3 10:27
PROVIDERS: ADMIT Internal Medicine; ATTEND Internal Medicine
DX: A41.9 Sepsis, unspecified organism (principal); R65.21 Severe sepsis with septic shock; J96.21 Acute and chronic respiratory failure with hypoxia; J18.9 Pneumonia, unspecified organism; J44.1 Chronic obstructive pulmonary disease with (acute) exacerbation; J44.0 Chronic obstructive pulmonary disease with (acute) lower respiratory infection; N17.9 Acute kidney failure, unspecified; N39.0 Urinary tract infection, site not specified; E87.1 Hypo-osmolality and hyponatremia; I50.9 Heart failure, unspecified; D75.1 Secondary polycythemia; F10.21 Alcohol dependence, in remission; E03.9 Hypothyroidism, unspecified; Z87.891 Personal history of nicotine dependence; I25.2 Old myocardial infarction; Z95.5 Presence of coronary angioplasty implant and graft; Z99.81 Dependence on supplemental oxygen; K57.30 Diverticulosis of large intestine without perforation or abscess without bleeding; K76.89 Other specified diseases of liver
CPT/HCPCS: 36415; 71045; 71250; 74176; 80048; 80053; 81001; 82550; 82553; 83605; 83735; 83880; 84100; 84443; 84484; 85025; 87040; 87086; 93005; 94640; 94664; 96361; 97139; 99285; J0456; J0696; J1650; J2405; J2920; J7030; J7050; J7512

== ENCOUNTER 2021-01-29 21:50 | Emergency (ER) | payer MEDICARE, OTHER ==
[~2021-01-29] VITALS: Ht 154.9 cm; Wt 53.5 kg
[~2021-01-29 21:50] MED LIST changes: +CORLANOR5 MG PO; +DOXYCYCLINE HY100 MG PO; +METOPROLOL TART25 MG PO; +PREDNISONE20 MG PO; +TRELEGY ELLIPT1 EACH
[2021-01-29 23:30] LABS: BASOPHILS % 0.4 % (0.0-1.0); EOSINOPHILS % 0.1 % (0.0-6.0); HEMATOCRIT 50.5 % (38.2-49.6); HEMOGLOBIN 17.7 g/dL (14.0-18.0); LYMPHOCYTES # (AUTO) 1.9 (1.0-3.2); LYMPHOCYTES % 17.4 % (18.0-39.1); MEAN CORPUSCULAR HEMOGLOBIN 32.5 pg (28-32); MEAN CORPUSCULAR VOLUME 92.8 fL (81-99); MONOCYTES # (AUTO) 1.1 (0.2-0.8); NEUTROPHILS # (AUTO) 7.5 (2.1-6.9); NEUTROPHILS % 70.7 % (38.7-80.0); PLATELET COUNT 218 x10e3/uL (140-360); RED BLOOD COUNT 5.44 x10e6/uL (4.3-5.7); RED CELL DISTRIBUTION WIDTH 12.3 % (11.7-14.4)
[2021-01-29 23:49] LABS: ALBUMIN 3.8 g/dL (3.5-5.0); ALBUMIN/GLOBULIN RATIO 1.4 (0.8-2.0); CALCIUM 8.9 mg/dL (8.4-10.2); CREATININE, SERUM 1.07 mg/dL (0.72-1.25)
== END 2021-01-30 01:09 | disposition home or self-care (01) ==
LOC: ER 23:27
DX: R68.2 Dry mouth, unspecified (principal); J44.9 Chronic obstructive pulmonary disease, unspecified; Z99.81 Dependence on supplemental oxygen; I50.9 Heart failure, unspecified; I25.2 Old myocardial infarction
CPT/HCPCS: 36415; 80053; 85025; 99283

== ENCOUNTER 2021-09-23 13:55 | Inpatient (IN) | payer MEDICARE, OTHER ==
[~2021-09-23] VITALS: Ht 154.9 cm; Wt 53.5 kg
[2021-09-23] MEDS ORDERED: ALBUTEROL SULF 0.083% NEB SOLN 3 ML NEB NEB PRN (14:15)
[2021-09-23 14:28] LABS: BASOPHILS % 0.4 % (0.0-1.0); HEMATOCRIT 54.6 % (38.2-49.6); HEMOGLOBIN 18.4 g/dL (14.0-18.0); LYMPHOCYTES # (AUTO) 0.5 (1.0-3.2); LYMPHOCYTES % 4.7 % (18.0-39.1); MEAN CORPUSCULAR HEMOGLOBIN 31.6 pg (28-32); MEAN CORPUSCULAR HGB CONC 33.7 g/dL (31-35); MEAN CORPUSCULAR VOLUME 93.7 fL (81-99); MONOCYTES # (AUTO) 0.2 (0.2-0.8); MONOCYTES % 1.9 % (4.4-11.3); NEUTROPHILS # (AUTO) 9.8 (2.1-6.9); NEUTROPHILS % 91.8 % (38.7-80.0); PLATELET COUNT 157 x10e3/uL (140-360); RED BLOOD COUNT 5.83 x10e6/uL (4.3-5.7); RED CELL DISTRIBUTION WIDTH 14.6 % (11.7-14.4)
[2021-09-23 14:53] LABS: ABG HCO3 15 mmol/L (22-26); ABG PCO2 23 mmHg (35-45); ABG PH 7.41 (7.35-7.45); ABG PO2 67 mmHg (80-105); ABG TCO2 15
[2021-09-23 15:50] LABS: ALBUMIN 3.2 g/dL (3.5-5.0); ALBUMIN/GLOBULIN RATIO 1.1 (0.8-2.0); ANION GAP 16.9 mmol/L (8-16); CALCIUM 9.1 mg/dL (8.4-10.2); CREATININE, SERUM 1.69 mg/dL (0.72-1.25); POTASSIUM 4.9 mmol/L (3.5-5.1)
[2021-09-23] MEDS ORDERED: ONDANSETRON HCL INJ 2MG/ML 2ML 2 MG/ML VIAL IV PRN (16:45)
[2021-09-23] MEDS ORDERED: SODIUM CHLORIDE FLUSH 10 ML SYR INJ PRN (16:45)
[2021-09-23] MEDS: METHYLPREDNISOLONE SOD SUCC 125 MG/2ML VIAL IV SCH (17:58)
[2021-09-23] MEDS: ALBUTEROL/IPRATROPIUM 3 ML NEB NEB SCH ×2 (18:34→21:53)
[2021-09-23] MEDS ORDERED: LORAZEPAM INJ 2 MG/ML VIAL IV PRN (20:45)
[2021-09-23 22:15] LABS: ABG HCO3 18 mmol/L (22-26); ABG PCO2 25 mmHg (35-45); ABG PH 7.45 (7.35-7.45); ABG PO2 89 mmHg (80-105); ABG TCO2 18
[2021-09-23 23:39] VITALS: BP 105/72
[2021-09-24] VITALS (12 sets, daily range): BP systolic 92–115; BP diastolic 63–87
[2021-09-24] MEDS ORDERED: ATIVAN0.5 MG PO
[2021-09-24] MEDS ORDERED: THEOPHYLLI80 MG/151 PO
[2021-09-24] MEDS: ALBUTEROL/IPRATROPIUM 3 ML NEB NEB SCH ×6 (02:58→22:47)
[2021-09-24 04:47] LABS: BASOPHILS % 0.2 % (0.0-1.0); HEMATOCRIT 48.3 % (38.2-49.6); HEMOGLOBIN 16.6 g/dL (14.0-18.0); LYMPHOCYTES # (AUTO) 0.4 (1.0-3.2); LYMPHOCYTES % 6.1 % (18.0-39.1); MEAN CORPUSCULAR HEMOGLOBIN 31.6 pg (28-32); MEAN CORPUSCULAR HGB CONC 34.4 g/dL (31-35); MEAN CORPUSCULAR VOLUME 91.8 fL (81-99); MONOCYTES # (AUTO) 0.1 (0.2-0.8); MONOCYTES % 1.8 % (4.4-11.3); NEUTROPHILS % 91.3 % (38.7-80.0); PLATELET COUNT 136 x10e3/uL (140-360); RED BLOOD COUNT 5.26 x10e6/uL (4.3-5.7); RED CELL DISTRIBUTION WIDTH 14.1 % (11.7-14.4)
[2021-09-24 05:08] LABS: ANION GAP 13.6 mmol/L (8-16); CREATININE, SERUM 1.37 mg/dL (0.72-1.25); POTASSIUM 4.6 mmol/L (3.5-5.1)
[2021-09-24] MEDS: METHYLPREDNISOLONE SOD SUCC 125 MG/2ML VIAL IV SCH (05:38)
[2021-09-24] MEDS: BUDESONIDE 0.5MG/2 ML NEB INH SCH ×2 (11:00→19:05)
[2021-09-24] MEDS: CEFTRIAXONE 1 GM in SODIUM CHLORIDE 0.9% 50ML 50 ML IV SCH (11:19)
[2021-09-24] MEDS: FAMOTIDINE 20 MG/2 ML VIAL IV SCH (11:59)
[2021-09-24] MEDS ORDERED: FUROSEMIDE INJ 10 MG/ML 4 ML VIAL IV ONE (12:00)
[2021-09-24] MEDS ORDERED: FUROSEMIDE INJ 10 MG/ML 2 ML VIAL IV ONE (12:30)
[2021-09-24] MEDS ORDERED: CITRIC ACID/SODIUM CITRATE 30 ML UDC PO ONE (12:30)
[2021-09-24] MEDS ORDERED: LORAZEPAM INJ 2 MG/ML VIAL IV PRN (12:45)
[2021-09-24 13:04] LABS: CLARITY,URINE CLEAR (CLEAR); COLOR,URINE YELLOW (YELLOW); KETONES,URINE NEGATIVE (NEGATIVE); LEUKOCYTE ESTERASE ,URINE NEGATIVE (NEGATIVE); NITRITE,URINE NEGATIVE (NEGATIVE); PROTEIN,URINE DIPSTICK NEGATIVE (NEGATIVE); URINE UROBILINOGEN 0.2 mg/dL (0.2 - 1)
[2021-09-24 13:15] LABS: BACTERIA,URINE FEW /HPF; EPITHELIAL CELLS,URINE FEW /LPF; RBC,URINE 0-5 /HPF (0-5); WBC,URINE (MAN) 0-5 /HPF (0-5)
[2021-09-24] MEDS ORDERED: ENOXAPARIN 30 MG/0.3 ML SYR SC SCH (17:00)
[2021-09-24] MEDS: METOPROLOL TARTRATE 25 MG TAB PO SCH (17:52)
[2021-09-24] MEDS: METHYLPREDNISOLONE SOD SUCC 40 MG/ML VIAL 1ML IV SCH (17:55)
[2021-09-24] MEDS ORDERED: GABAPENTIN 300 MG CAP PO PRN (21:00)
[2021-09-25] VITALS: BP 96/63
[2021-09-25] MEDS: ALBUTEROL/IPRATROPIUM 3 ML NEB NEB SCH ×3 (02:39→10:15)
[2021-09-25 04:06] VITALS: BP 104/71
[2021-09-25 05:03] LABS: HEMATOCRIT 46.5 % (38.2-49.6); HEMOGLOBIN 15.8 g/dL (14.0-18.0); LYMPHOCYTES # (AUTO) 0.5 (1.0-3.2); MEAN CORPUSCULAR HEMOGLOBIN 31.2 pg (28-32); MEAN CORPUSCULAR VOLUME 91.9 fL (81-99); MONOCYTES # (AUTO) 0.4 (0.2-0.8); NEUTROPHILS # (AUTO) 8.5 (2.1-6.9); NEUTROPHILS % 90.4 % (38.7-80.0); PLATELET COUNT 142 x10e3/uL (140-360); RED BLOOD COUNT 5.06 x10e6/uL (4.3-5.7); RED CELL DISTRIBUTION WIDTH 13.8 % (11.7-14.4)
[2021-09-25 05:30] LABS: ANION GAP 14.1 mmol/L (8-16); CALCIUM 8.9 mg/dL (8.4-10.2); CREATININE, SERUM 1.81 mg/dL (0.72-1.25); POTASSIUM 4.1 mmol/L (3.5-5.1)
[2021-09-25] MEDS: METHYLPREDNISOLONE SOD SUCC 40 MG/ML VIAL 1ML IV SCH (05:32)
[2021-09-25] MEDS ORDERED: LEVOTHYROXINE SODIUM 50 MCG TAB PO SCH (06:00)
[2021-09-25] MEDS ORDERED: DOCUSATE SODIUM 100 MG CAP PO PRN (06:15)
[2021-09-25] MEDS ORDERED: GUAIFENESIN/CODEINE 5 ML LIQD PO PRN (06:15)
[2021-09-25 07:00] VITALS: BP 100/64
[2021-09-25] MEDS: BUDESONIDE 0.5MG/2 ML NEB INH SCH (07:30)
[2021-09-25 07:36] VITALS: BP 100/64
[2021-09-25] MEDS: CEFTRIAXONE 1 GM in SODIUM CHLORIDE 0.9% 50ML 50 ML IV SCH (08:24)
[2021-09-25] MEDS: FAMOTIDINE 20 MG/2 ML VIAL IV SCH (08:24)
[2021-09-25] MEDS: METOPROLOL TARTRATE 25 MG TAB PO SCH (08:26)
[2021-09-25] MEDS ORDERED: FOLIC ACID 1 MG TAB PO SCH (09:00)
[2021-09-25] MEDS ORDERED: THEOPHYLLINE 80 MG/15 ML SYRP PO SCH ×2 (09:00→18:00)
[2021-09-25] MEDS ORDERED: CLOPIDOGREL BISULFATE 75 MG TAB PO SCH (09:00)
[2021-09-25] MEDS ORDERED: SODIUM CHLORIDE 0.9% 250ML 250 ML ONE (09:07)
[2021-09-25] MEDS ORDERED: LORAZEPAM INJ 2 MG/ML VIAL IV PRN (10:14)
[2021-09-25] MEDS ORDERED: LORAZEPAM INJ 2 MG/ML VIAL ONE (10:22)
[2021-09-25] MEDS ORDERED: NOREPINEPHRINE 8 MG/D5W 250 ML 250 ML ONE (10:31)
[2021-09-25] MEDS ORDERED: SUCCINYLCHOLINE CHLORIDE 20 MG/ML 10ML VIAL ONE (12:42)
[2021-09-25] MEDS ORDERED: EPINEPHRINE HCL SYRINGE ONE (12:59)
[2021-09-25] MEDS ORDERED: ATROPINE SULFATE 0.1 MG/ML 10ML SYR ONE (12:59)
== END 2021-09-25 16:58 | disposition expired | DRG 208 ==
LOC: ER 14:30 → ERHOLD 17:03 → IMCU 23:20
PROVIDERS: ADMIT Internal Medicine; ATTEND Internal Medicine
PROC: 5A09357 Assistance with Respiratory Ventilation, Less than 24 Consecutive Hours, Continuous Positive Airway Pressure (ICD-10-PCS; principal; 2021-09-23)
PROC: 3E03329 Introduction of Other Anti-infective into Peripheral Vein, Percutaneous Approach (ICD-10-PCS; 2021-09-24)
PROC: 5A1935Z Respiratory Ventilation, Less than 24 Consecutive Hours (ICD-10-PCS; 2021-09-25)
PROC: 0BH18EZ Insertion of Endotracheal Airway into Trachea, Via Natural or Artificial Opening Endoscopic (ICD-10-PCS; 2021-09-25)
PROC: 5A12012 Performance of Cardiac Output, Single, Manual (ICD-10-PCS; 2021-09-25)
PROC: 3E033XZ Introduction of Vasopressor into Peripheral Vein, Percutaneous Approach (ICD-10-PCS; 2021-09-25)
DX: J44.1 Chronic obstructive pulmonary disease with (acute) exacerbation (principal); J96.01 Acute respiratory failure with hypoxia; N17.0 Acute kidney failure with tubular necrosis; I13.0 Hypertensive heart and chronic kidney disease with heart failure and stage 1 through stage 4 chronic kidney disease, or unspecified chronic kidney disease; I50.32 Chronic diastolic (congestive) heart failure; R64 Cachexia; N18.30 Chronic kidney disease, stage 3 unspecified; D75.1 Secondary polycythemia; Z74.01 Bed confinement status; Z99.81 Dependence on supplemental oxygen; I25.2 Old myocardial infarction; Z95.5 Presence of coronary angioplasty implant and graft; Z79.899 Other long term (current) drug therapy; Z87.891 Personal history of nicotine dependence; I27.20 Pulmonary hypertension, unspecified; G62.1 Alcoholic polyneuropathy; I25.10 Atherosclerotic heart disease of native coronary artery without angina pectoris; F10.11 Alcohol abuse, in remission; Z68.22 Body mass index [BMI] 22.0-22.9, adult; F41.0 Panic disorder [episodic paroxysmal anxiety]; Z51.5 Encounter for palliative care; I46.9 Cardiac arrest, cause unspecified
CPT/HCPCS: 31500; 36415; 36600; 71045; 80048; 80053; 80198; 81001; 82805; 82948; 83880; 84443; 84484; 85025; 92950; 93005; 93306; 94640; 94660; 94799; 99284; J0171; J0330; J0456; J0696; J1650; J1940; J2060; J2920; J2930; J7050; U0002